=== PATIENT | male | born 1935 | race Caucasian/White ===

== ENCOUNTER 2018-11-28 13:18 | Inpatient (IN) | payer MEDICARE, BC ==
[~2018-11-28] VITALS: Ht 175.3 cm; Wt 66.7 kg
[2018-11-28] MEDS ORDERED: ZESTRIL40 MG PO (16:18)
[2018-11-28] MEDS ORDERED: PROTONIX40 MG PO (16:18)
[2018-11-28] MEDS ORDERED: CERTIRIZINE PO (16:20)
[2018-11-28] MEDS ORDERED: TOPROL XL50 MG PO (16:21)
[2018-11-28] MEDS ORDERED: RIVASTIGMINE3 MG PO (16:22)
[2018-11-28] MEDS ORDERED: CATAPRES0.1 MG PO (16:24)
[2018-11-28] MEDS ORDERED: CARDURA4 MG PO (16:26)
[2018-11-28] MEDS ORDERED: FERROUS SULFAT325 MG PO (16:27)
[2018-11-28] MEDS ORDERED: SEROQUEL25 MG PO (16:27)
[2018-11-28] MEDS ORDERED: ZYRTEC10 MG PO (16:35)
--- NOTE | 2018-11-28 18:54 | NUR ---
PER REPORT FROM PREVIOUS SHIFT: PATIENT WAS ADMITTED TO [facility] @1330 FROM [facility] ASSISTED LIVING DUE TO AGGRESSIVE AND BIZARRE BEHAVIOR. WAS COMBATIVE WITH THE STAFF AND HIS THERE AT [facility]. WAS CARRYING TRASH BIN AROUND AND SCATTERING TRASH ALL OVER THE FLOOR, MOVING LAUNDRY BASKETS TO INAPPROPRIATE PLACES. WAS COMPLAINING THAT HIS HEAD WAS HURTING AND HIS BRAIN WAS ALL SCRAMBLED UP IN THERE. PATIENT IS 83 YRS OLD AND RESIDES AT [facility] WITH HIS . HAS HISTORY OF DEMENTIA AND HAS BEEN MORE CONFUSED. PATIENT IS AMBULATORY. WAS ADMITTED TO ROOM 1128.
[2018-11-28 19:30] VITALS: BP 150/68
--- NOTE | 2018-11-28 22:45 | NUR ---
B) AT CHANGE OF SHIFT PATIENT WAS WANDERING ON UNIT, PICKING UP LINT OFF FLOOR, SHOWING IT TO NURSINF STAFF. TALKING IN ROOM TO PERSONS NOT PRESENT. NO ANGER OBSERVED AND NO AGGRESSION, PLEASANTLY CONFUSED. I) MEDICATE ORDERED, REORIENT AND REDIRECT NEEDED. R) COMPLIANT WITH MEDICATIONS, RESTLESS, PACING, WANDERING, VISUAL AND AUDITORY HALLUCINATIONS. P) MONITOR PER PLAN OF CARE.
[2018-11-28 23:38] VITALS: BP 152/63; BMI 21.8
[2018-11-29 06:03] LABS: BASOPHILS 0.3 % (0-2); EOSINOPHILS 3.8 % (0-7); HEMATOCRIT 34.7 % (42.0-54.0); HEMOGLOBIN 11.8 g/dL (13.5-17.5); IMMATURE GRANULOCYTES 0.3 % (0-5); LYMPHOCYTES 27.2 % (15-50); MCH 31.2 pg (26.0-34.0); MCV 91.8 fL (80.0-100.0); MEAN PLATELET VOLUME 9.4 fL (7.4-10.4); MONOCYTES 11.9 % (2-11); NEUTROPHILS 56.5 % (40-80); PLATELET COUNT 264 10x3/uL (130-400); RBC 3.78 10x6/uL (4.20-6.10); RDW 12.8 % (11.5-14.5); WBC 5.8 10x3/uL (4.8-10.8)
[2018-11-29 06:33] LABS: ALBUMIN 3.3 g/dL (3.4-5.0); ALKALINE PHOSPHATASE 33 U/L (46-116); ALT (SGPT) 21 U/L (10-68); BILIRUBIN - TOTAL 0.53 mg/dL (0.2-1.3); CALC OSMOLALITY 269 mosm/kg (275-300); CALCIUM 8.9 mg/dL (8.5-10.1); CARBON DIOXIDE 28.5 mmol/L (21.0-32.0); CHLORIDE - SERUM 102 mmol/L (98-107); CHOL - HDL RATIO 3.7 ratio (2.3-4.9); CHOLESTEROL, TOTAL 179 mg/dL (0-200); CREATININE - SERUM 0.9 mg/dL (0.6-1.3); GLUCOSE 94 mg/dL (74-106); HDL CHOLESTEROL 48 mg/dL (32-96); LDL CHOLESTEROL 115 mg/dL (0-100); LDL-HDL RATIO 2.4 ratio (1.5-3.5); POTASSIUM - SERUM 4.7 mmol/L (3.5-5.1); PROTEIN - SERUM 6.6 g/dL (6.4-8.2); SODIUM 135 mmol/L (136-145); THYROID STIMULATING HORMONE 2.33 uIU/mL (0.36-3.74); TRIGLYCERIDE 83 mg/dL (30-200); UREA NITROGEN 13 mg/dL (7-18); eGFR NON AFRICAN AMERICAN 86 mL/min (90-120)
[2018-11-29 10:04] VITALS: BP 154/77
[2018-11-29 10:24] VITALS: BMI 21.7
--- NOTE | 2018-11-29 12:30 | NUR ---
The patient is awake, he is watchful, he ambulates independently. He is oriented to self only, he has good technician terminal and repeater memory recall. He has poor insight into his situation. The patient participates in some activities and groups. He is compliant with medications. He is watchful. Continue POC.
[2018-11-29 13:53] LABS: APPEARANCE CLEAR (CLEAR); BILIRUBIN NEGATIVE (NEGATIVE); COLOR STRAW (YELLOW); GLUCOSE NEGATIVE (NEGATIVE); KETONE NEGATIVE (NEGATIVE); NITRITE NEGATIVE (NEGATIVE); PROTEIN NEGATIVE (NEGATIVE); UROBILINOGEN NORMAL (NORMAL)
[2018-11-29 14:29] VITALS: BMI 21.7
[2018-11-29 20:14] VITALS: BP 154/86
--- NOTE | 2018-11-29 22:57 | NUR ---
PATIENT IS AGITATED, WITHDRAWN, SUSPICIOUS ACTING AND SUCSPICIOS OF OTHERS. HE ISNT TRUSTING, HE IS CONCERNED ABOUT HIS AND . HE ASKED, "AM I GOING TO ". EXCESSIVELY PACING. LITTLE DIFFICULT OT REDIRECT. NO ADVERSE REACTIONS NOTED. WILL CONTINUE TO FOLLOW POC
[2018-11-30 08:00] VITALS: BP 146/78
[2018-11-30 08:19] LABS: RAPID PLASMA REAGIN Non Reactive (Non Reactive); VITAMIN D 25 HYDROXY 29.5 ng/mL (30.0-100.0)
[2018-11-30 10:15] LABS: FOLATE (FOLIC ACID) - SERUM 17.9 ng/mL (>3.0)
--- NOTE | 2018-11-30 11:47 | HP ---
PATIENT: KATHY DILLON MEDICAL RECORD: [id number] ACCOUNT: [id number] LOCATION:MERVIN Jones : 36 ADMISSION DATE: 11/28/18 PCP: No PCP HISTORY AND PHYSICAL EXAMINATION IDENTIFYING DATA: The patient is 83 years old and he is admitted to the hospital on a voluntary basis. CHIEF COMPLAINT: Aggression. HISTORY OF PRESENT ILLNESS: The patient lives at the [facility] in [place]. Apparently, he has been combative with his and staff members there. He has no recollection of this and in fact becomes very upset when I mention it, so I did not press the issue. Apparently, he has also been having both visual and auditory hallucinations in addition to the aggression. Apparently, he thought his was , but when I mentioned that he had been agitated with her, again he became very distressed about this. He has an established diagnosis of dementia and has had clear worsening in those symptoms. PAST MEDICAL HISTORY: Significant for hypertension. PAST PSYCHIATRIC HISTORY: Significant for an established diagnosis of dementia. FAMILY HISTORY: Unknown. ALLERGIES: ARICEPT. CURRENT MEDICATIONS: Lisinopril, Protonix, metoprolol, Exelon, Catapres, Cardura, Feosol, Seroquel, Zyrtec. SOCIAL HISTORY: The patient is a mechanical intern. He is and has been to the same woman since 1965. They have no children. He has no history of drug or alcohol abuse. MENTAL STATUS EXAMINATION: The patient is awake, alert, and oriented to person only. His mood is anxious. His affect is constricted. Thought processes are circumstantial. Memory, concentration, and abstraction abilities are severely impaired and he denies any active intent to harm himself or others as well as psychotic symptoms. ASSETS: Supportive family members. LIABILITIES: Limited insight. DIAGNOSTIC IMPRESSION: AXIS I: Senile dementia of the Alzheimer's type with behavioral disturbances. AXIS II: None. AXIS III: Hypertension. AXIS IV: Moderate. AXIS V: Global Assessment Of Functioning is 25. PLAN: At this time, the patient is admitted to the hospital for a comprehensive medical, psychological, and social evaluation. He will be treated with both mood stabilizing and memory-enhancing medications. His long-term prognosis is HISTORY AND PHYSICAL [id number] SANTANA,KATHY guarded. TRANSINT:[id number] Voice Confirmation ID: [id number] DOCUMENT ID: [id number] CHAPARRO COLBERT MD at 1147 CC: [id number] DICTATION DATE: 11/29/181710 RADIOLOGY SUPERVISOR: 11/29/182033 ADM IN [address] [address] [place] [address]
--- NOTE | 2018-11-30 13:00 | NUR ---
The patient is calm and pleasant and calm, he paces and he is bizare in action and movement, but he has not shown any aggression today. Provide prescribed meds. He is compliant with meds. Continue POC.
[2018-11-30 21:54] VITALS: BP 160/59
--- NOTE | 2018-11-30 22:56 | NUR ---
PATIENT PACING, CONFUSED, HARD TO REDIRECT. NO ADVERSE REACTION TO MEDS. ATIVAN/HALDOL GIVEN IM FOR PSYCHOSIS/AGITATION. WILL FOLLOW POC
--- NOTE | 2018-12-01 07:30 | NUR ---
REC'D PT IN HALLWAY. PT IS AWAKE AND ORIENTED TO SELF. PT AMBULATES INDEPENDENTLY. POOR INSIGHT NOTED. PRESCRIBED MEDS PROVIDED. MED COMPLIANT. CALM AND COOPERATIVE WITH ASSESSMENT. FALL PRECAUTIONS IN PLACE. WILL CONTINUE TO MONITOR Q 15 MINUTES FOR SAFETY. WILL CPOC.
[2018-12-01 09:00] VITALS: BP 124/71
--- NOTE | 2018-12-01 12:04 | PN ---
PATIENT:KATHY DILLON MEDICAL RECORD: [id number] LOCATION:MERVIN Fregoso ADMISSION DATE: 11/28/18 PROGRESS NOTE DATE OF SERVICE: 11/30/2018 SUBJECTIVE: The patient's case was discussed with staff. He has no new complaint. OBJECTIVE: The patient denies intent to harm himself or others. He is severely impaired cognitively. He has not been aggressive. Current medicines have been reviewed. TRANSINT:[id number] Voice Confirmation ID: [id number] DOCUMENT ID: [id number] CHAPARRO COLBERT MD at 1204 CC: [id number] DICTATION DATE: 11/30/18 1203 TIE WORKER: 11/30/18 1342 ADM IN [address] [place] [address]
[2018-12-01 22:20] VITALS: BP 156/73
--- NOTE | 2018-12-02 07:30 | NUR ---
REC'D PT IN HALLWAY SOCALIZING WITH PEERS. PT AWAKE AND ALERT WITH CONFUSION N0TED. CALM AND COOPERATIVE WITH ASSESSMENT. NO AGGRESSION NOTED. PRESCRIBED MEDS PROVIDED. MED COMPLIANT. FALL PRECAUTIONS IN PLACE. WILL CONTINUE TO MONITOR Q 15 MINUTES FOR SAFETY. WILL CPOC.
[2018-12-02 08:00] VITALS: BP 155/71
--- NOTE | 2018-12-02 16:25 | NUR ---
ATIVAN 0.5 MG PO GIVEN FOR AGITATION AND DIFFICULT WITH REDIRECTION.
--- NOTE | 2018-12-02 17:39 | PN ---
PATIENT:KATHY DILLON MEDICAL RECORD: [id number] LOCATION:[facility] Fregoso ADMISSION DATE: 11/28/18 PROGRESS NOTE DATE OF SERVICE: 12/01/2018 SUBJECTIVE: The patient's case was discussed with staff. He has no new complaint. OBJECTIVE: The patient denies intent to harm himself or others. He does tolerate his medicines well. He has been somewhat agitated and did require p.r.n. Haldol and Ativan last night. ASSESSMENT: No change in diagnoses. PLAN: The patient's Seroquel will be discontinued. I am going to start him on Geodon at a dose of 20 mg daily. TRANSINT:[id number] Voice Confirmation ID: [id number] DOCUMENT ID: [id number] CHAPARRO COLBERT MD at 1739 CC: [id number] DICTATION DATE: 12/01/18 1228 CONTROL SYSTEMS SPECIALIST: 12/01/18 1734 ADM IN [id number] [place] [address]
--- NOTE | 2018-12-03 01:26 | NUR ---
RECEIVED IN HALLWAY OUTSIDE OF [facility] STATION. WANDERING HALLS. VERY CONFUSED. ATTMEPTING TO GO IN OTHER PATIENTS ROOMS. CALM AND COOPERATIVE WITH CARE AND ASSESSMENT. NO SIGNS OF AGGRESSION. REDIRECT AND REORIENT NEEDED. RESTING IN BED WITH EYES CLOSED AT THIS TIME. CONTINUE PLAN OF CARE.
--- NOTE | 2018-12-03 07:30 | NUR ---
REC'D PT IN HALLWAY SITTING IN CHAIR SOCIALIZING WITH PEERS. NO AGGRESSION NOTED. CALM AND COOPERATIVE WITH ASSESSMENT. REDIRECT AND REORIENT NEEDED. PRESCRIBED MEDS PROVIDED. MED COMPLIANT. FALL PRECAUTIONS IN PLACE. WILL CONTINUE TO MONITOR Q 15 MINUTES FOR SAFETY. WILL CPOC.
[2018-12-03 08:00] VITALS: BP 163/123
--- NOTE | 2018-12-03 10:30 | NUR ---
REPEAT B/P 157/82 WILL CPOC.
--- NOTE | 2018-12-03 12:00 | NUR ---
PT VOMITING CLEAR FLIUDS. GLADYS TELEMETRY RN PRESENT. NEW ORDER NOTED. WILL CONTINUE TO MONITOR.
[2018-12-03 12:03] VITALS: BP 157/82
--- NOTE | 2018-12-03 15:11 | PN ---
PATIENT:KATHY DILLON MEDICAL RECORD: [id number] LOCATION:MERVIN Fregoso ADMISSION DATE: 11/28/18 PROGRESS NOTE DATE OF SERVICE: 12/02/2018 SUBJECTIVE: The patient's case was discussed with staff. He has no new complaint. OBJECTIVE: The patient is quite confused, but he has not been aggressive. He is difficult to redirect and is having a great deal of difficulty interpreting what is going on in his environment. Some of this is causing anxiety, which is being manifested as the agitation. ASSESSMENT: No change in diagnoses. PLAN: I am going to start the patient on a low dose of Klonopin to assist with this agitation. His long-term prognosis is guarded. TRANSINT:[id number] Voice Confirmation ID: [id number] DOCUMENT ID: [id number] CHAPARRO COLBERT MD at 1511 CC: [id number] DICTATION DATE: 12/02/18 1821 COOK NIGHT: 12/02/18 2338 ADM IN [address] [id number] [place] [address]
[2018-12-03 19:31] VITALS: BP 129/89
--- NOTE | 2018-12-03 23:21 | NUR ---
RECEIVED IN HALLWAY OUTSIDE OF NURSES STATION. WANDERING HALLS. CONFUSED. CALM AND COOPERATIVE WITH CARE AND ASSESSMENT. NO SIGNS OF AGGRESSION. REDRIECT AND REORIENT NEEDED. RESTING IN BED WITH EYES CLOSED AT THIS TIME. CONTINUE PLAN OF CARE.
--- NOTE | 2018-12-04 10:00 | NUR ---
RECEIVED PATIENT IN DINING ROOM FOR B'FAST, ALERT, CALM, CONFUSED, COOPERATIVE. DENIES NAUSEA. MEDS ADMIN PER ORDERS, MED COMPLIANT, NO S/S ADVERSE REACTION NOTED. COOPERATIVE WITH GROUP AND STAFF REQUESTS. CONT POC INCLUDING MEDS AND GROUP THERAPY DIRECTED.
[2018-12-04 11:03] VITALS: Ht 175.3 cm; Wt 66.7 kg
[2018-12-04 11:35] VITALS: BP 123/105
--- NOTE | 2018-12-04 16:07 | PN ---
PATIENT:KATHY DILLON MEDICAL RECORD: [id number] LOCATION:MERVIN Fregoso ADMISSION DATE: 11/28/18 PROGRESS NOTE DATE OF SERVICE: 12/03/2018 SUBJECTIVE: The patient's case was discussed with staff. He has no new complaint. OBJECTIVE: The patient denies an intent to harm himself or others. He tolerates his medicines well. ASSESSMENT: No change in diagnoses. PLAN: The patient has had some nausea today, not sure what is causing this. He may be developing a gastrointestinal condition. I am not going to make a medicine change today in case it is related to something he is taking. The iron is certainly a possibility, but he has been on iron before he came here, so I am not sure what the issue is. I will observe him for another day and may or may not make additional medication changes tomorrow. TRANSINT:[id number] Voice Confirmation ID: [id number] DOCUMENT ID: [id number] CHAPARRO COLBERT MD at 1607 CC: [id number] DICTATION DATE: 12/03/18 1624 CONTINUITY TESTER: 12/03/182027 ADM IN [facility] [address] [place] [address]
[2018-12-04 20:48] VITALS: BP 132/60
--- NOTE | 2018-12-04 23:38 | NUR ---
RECEIVED IN HALLAY OUTSIDE OF NURSES STATION. WANDERING HALLS. CONFUSED. CALM AND COOPERATIVE WITH CARE AND ASSESSMENT. NO SIGNS OF AGGRESSION. REDIRECT AND REORIENT NEEDED. RESTING IN BED WITH EYES CLOSED AT THIS TIME. CONTINUE PLAN OF CARE.
--- NOTE | 2018-12-05 14:00 | NUR ---
B) The patient is lethargic this am, but he awakened this afternoon. He is pleasant, but very confused. He stares off into space and he is nonsensical in his speaking. He has been taking his clothes off many times today and he has had to be redirected and assisted to put them back on. He can ambulate, but he is slow moving today. I) Provide prescribed meds. R) The patient is compliant with meds. P) Continue POC.
--- NOTE | 2018-12-05 14:42 | PN ---
PATIENT:KATHY DILLON MEDICAL RECORD: [id number] LOCATION:MERVIN Fregoso ADMISSION DATE: 11/28/18 PROGRESS NOTE DATE OF SERVICE: 12/04/2018 SUBJECTIVE: The patient's case was discussed with staff. He has no new complaint. OBJECTIVE: The patient is having some nausea and vomiting. It appears to be related to a viral illness that is affected several patients and a couple of staff members as well. He will be treated supportively for the time being and then further efforts will be made to address his behavior problems. Right now, it is also known that he is significantly constipated and has not had a bowel movement for a little while and efforts are going to be made to fix that. TRANSINT:[id number] Voice Confirmation ID: [id number] DOCUMENT ID: [id number] CHAPARRO COLBERT MD at 1442 CC: [id number] DICTATION DATE: 12/04/18 1639 STAYING MACHINE OPERATOR: 12/04/18 2240 ADM IN [address] [id number] [place] [address]
[2018-12-05 15:48] LABS: BASOPHILS 0.3 % (0-2); EOSINOPHILS 0.3 % (0-7); HEMATOCRIT 36.9 % (42.0-54.0); HEMOGLOBIN 12.9 g/dL (13.5-17.5); IMMATURE GRANULOCYTES 0.2 % (0-5); LYMPHOCYTES 19.2 % (15-50); MCV 91.6 fL (80.0-100.0); MEAN PLATELET VOLUME 10.4 fL (7.4-10.4); MONOCYTES 11.1 % (2-11); NEUTROPHILS 68.9 % (40-80); PLATELET COUNT 287 10x3/uL (130-400); RBC 4.03 10x6/uL (4.20-6.10); RDW 12.6 % (11.5-14.5); WBC 6.7 10x3/uL (4.8-10.8)
[2018-12-05 16:08] LABS: ALBUMIN 3.6 g/dL (3.4-5.0); ALKALINE PHOSPHATASE 41 U/L (46-116); ALT (SGPT) 29 U/L (10-68); BILIRUBIN - TOTAL 0.72 mg/dL (0.2-1.3); CALC OSMOLALITY 279 mosm/kg (275-300); CALCIUM 9.7 mg/dL (8.5-10.1); CARBON DIOXIDE 27.3 mmol/L (21.0-32.0); CHLORIDE - SERUM 99 mmol/L (98-107); CREATININE - SERUM 0.8 mg/dL (0.6-1.3); GLUCOSE 93 mg/dL (74-106); POTASSIUM - SERUM 5.1 mmol/L (3.5-5.1); PROTEIN - SERUM 7.7 g/dL (6.4-8.2); SODIUM 136 mmol/L (136-145); UREA NITROGEN 36 mg/dL (7-18); eGFR NON AFRICAN AMERICAN > 90 mL/min (90-120)
[2018-12-05 19:56] VITALS: BP 157/85
--- NOTE | 2018-12-05 21:35 | NUR ---
B) Carrying brown paper bag around with urinal and tennis shoes in, unable to stay what he is doing this for. States he has had a very rough, rough day. States "everything tears me up." Was unable to elaborate or explain what he means by this, has difficulty expressing himself. Wanders about, redirect back to room. I) Administer medications as ordered, redirect and reorient PRN. R) Compliant with medications, restless, anxious, difficult getting to settle to sleep. P) Monitor per plan of care.
[2018-12-06 08:00] VITALS: BP 119/79
--- NOTE | 2018-12-06 15:20 | PN ---
PATIENT:KATHY DILLON MEDICAL RECORD: [id number] LOCATION:MERVIN Fregoso ADMISSION DATE: 11/28/18 PROGRESS NOTE DATE OF SERVICE: 12/05/2018 SUBJECTIVE: The patient's case was discussed with staff. He has no new complaint. OBJECTIVE: The patient is in good behavioral control. He has poor insight about his condition. He tolerates his medicines well. ASSESSMENT: No change in diagnoses. PLAN: Current medicines have been reviewed and will be maintained. Long-term prognosis is guarded. The patient is significantly calmer, but continues to not eat very well. Megace was started yesterday. TRANSINT:[id number] Voice Confirmation ID: [id number] DOCUMENT ID: [id number] CHAPARRO COLBERT MD at 1520 CC: [id number] DICTATION DATE: 12/05/18 1526 CLINICAL SPECIALIST VASCULAR: 12/05/18 2105 ADM IN [address] [place] [address]
--- NOTE | 2018-12-06 16:08 | NUR ---
CONFUSED AND DISORIENTED.COMPLIANT WITH STAFF AND MEDS.SLEEPS MOST OF THE DAY.NO AGGRESSION OBSERVED.WILL CONTINUE WITH PLAN OF CARE,MONITOR FOR CHANGES AND SAFETY.
--- NOTE | 2018-12-06 18:23 | NUR ---
APPETITE IS POOR.SPOON FED 5%.
--- NOTE | 2018-12-06 18:53 | NUR ---
OBSERVED SEVERAL TIMES TODAY EXIT SEEKING.EASILY REDIRECTS.
[2018-12-06 20:54] VITALS: BP 125/74
--- NOTE | 2018-12-07 01:29 | NUR ---
B) Patient is alert and oriented to self, tired today and ready to go to bed, follow instructions, I) Administered schedulled medications as ordered, monitored for safety, assisted with needs, R) Mediation compliant, sleeping quietly in bed now, P) Continue plan of care.
--- NOTE | 2018-12-07 07:30 | NUR ---
REC'D PT SITTING IN CHAIR IN HALLWAY BY NURSES STATION. ALERT AND ORIENTED WITH CONFUSION NOTED. CALM AND COOPERATIVE WITH ASSESSMENT. PRESCRIBED MEDS PROVIDED. MED COMPLIANT. NO AGGRESSION NOTED. FALL PRECAUTIONS IN PLACE. WILL CONTINUE TO MONITOR Q 15 MINUTES FOR SAFETY. WILL CPOC.
[2018-12-07 09:17] VITALS: BP 147/62
--- NOTE | 2018-12-07 10:04 | PN ---
PATIENT:KATHY DILLON MEDICAL RECORD: [id number] LOCATION:MERVIN Fregoso ADMISSION DATE: 11/28/18 PROGRESS NOTE DATE OF SERVICE: 12/06/2018 SUBJECTIVE: The patient's case was discussed with staff. He has no new complaint. OBJECTIVE: The patient is in good behavioral control with limited insight about his condition. He tolerates his medicines well. He is not eating well. He has been started on Megace, but he has not had enough exposure to it to be effective. He ate nothing yesterday. I will check baseline labs tomorrow if today's intake report is comparable to yesterday's. TRANSINT:[id number] Voice Confirmation ID: [id number] DOCUMENT ID: [id number] CHAPARRO COLBERT MD at 1004 CC: [id number] DICTATION DATE: 12/06/18 1540 LAST PULLER: 12/06/18 1638 ADM IN [facility] [address] [place] [address]
[2018-12-07 12:05] LABS: BASOPHILS 0.3 % (0-2); EOSINOPHILS 0.6 % (0-7); HEMOGLOBIN 12.7 g/dL (13.5-17.5); IMMATURE GRANULOCYTES 0.3 % (0-5); LYMPHOCYTES 22.1 % (15-50); MCH 31.4 pg (26.0-34.0); MCHC 35.3 g/dL (31.0-37.0); MEAN PLATELET VOLUME 9.6 fL (7.4-10.4); MONOCYTES 17.9 % (2-11); NEUTROPHILS 58.8 % (40-80); PLATELET COUNT 271 10x3/uL (130-400); RBC 4.04 10x6/uL (4.20-6.10); RDW 12.3 % (11.5-14.5); WBC 6.9 10x3/uL (4.8-10.8)
[2018-12-07 12:07] LABS: MCV 89.1 fL (80.0-100.0)
[2018-12-07 12:18] LABS: ALBUMIN 3.6 g/dL (3.4-5.0); BILIRUBIN - TOTAL 0.52 mg/dL (0.2-1.3); CALCIUM 10.1 mg/dL (8.5-10.1); CARBON DIOXIDE 27.3 mmol/L (21.0-32.0); PROTEIN - SERUM 7.3 g/dL (6.4-8.2)
[2018-12-07 12:19] LABS: ANION GAP 11.5 mmol/L (8-16); CREATININE - SERUM 1.2 mg/dL (0.6-1.3); POTASSIUM - SERUM 3.8 mmol/L (3.5-5.1)
--- NOTE | 2018-12-07 13:10 | NUR ---
Attempted to start an IV with a 20 guage IV cath in his left inner forearm. The vein blew. Did a second attempt with a 22 guage IV cath with success on the top left forearm, IV infusing well.
--- NOTE | 2018-12-07 15:20 | NUR ---
The patient pulled his IV out.
--- NOTE | 2018-12-07 15:25 | NUR ---
20 guage catheter inserted with flashback, flushed 10 ml NS. IV started and infusing well, wrapped with Coban. He has to be reminded not to touch the IV site, but he keeps touching it.
--- NOTE | 2018-12-07 17:40 | NUR ---
The patient pulled his Koban down on his arm and the IV began to beep and showed occluded. Did look at the patient's arm and the IV is infiltrated up his arm, he denies any pain. Did d/c the IV. He did get 200 ml in and he is starting to talk and look more alert.
--- NOTE | 2018-12-07 17:41 | NUR ---
The patient pulled his Koban down on his arm and the IV pump said occluded.
[2018-12-07 20:00] VITALS: BP 133/76
[2018-12-07 21:32] VITALS: BP 133/76
--- NOTE | 2018-12-08 02:04 | NUR ---
B) patient is alert and oriented to self, very confused and does not follow instructions, restless and trying to stand unassisted, I) Administered scheduled medications as ordered,, monitored for safety, redirected as needed R) Mediation compliant, resting quietly in his bed, P) Continue plan of care.
[2018-12-08 05:53] LABS: BASOPHILS 0.3 % (0-2); EOSINOPHILS 0.8 % (0-7); HEMATOCRIT 34.9 % (42.0-54.0); HEMOGLOBIN 12.3 g/dL (13.5-17.5); IMMATURE GRANULOCYTES 0.1 % (0-5); MCH 31.6 pg (26.0-34.0); MCHC 35.2 g/dL (31.0-37.0); MCV 89.7 fL (80.0-100.0); MEAN PLATELET VOLUME 9.7 fL (7.4-10.4); MONOCYTES 15.7 % (2-11); NEUTROPHILS 62.1 % (40-80); PLATELET COUNT 280 10x3/uL (130-400); RBC 3.89 10x6/uL (4.20-6.10); RDW 12.4 % (11.5-14.5); WBC 7.2 10x3/uL (4.8-10.8)
[2018-12-08 06:23] LABS: ALBUMIN 3.5 g/dL (3.4-5.0); ANION GAP 13.8 mmol/L (8-16); BILIRUBIN - TOTAL 0.55 mg/dL (0.2-1.3); CALCIUM 9.4 mg/dL (8.5-10.1); CARBON DIOXIDE 24.8 mmol/L (21.0-32.0); CREATININE - SERUM 1.1 mg/dL (0.6-1.3); POTASSIUM - SERUM 3.6 mmol/L (3.5-5.1); PROTEIN - SERUM 7.1 g/dL (6.4-8.2)
--- NOTE | 2018-12-08 06:38 | NUR ---
IV RESITED TO LEFT UPPER ARM, 22 GA ONE STICK.
[2018-12-08 08:59] VITALS: BP 123/87
--- NOTE | 2018-12-08 13:57 | PN ---
PATIENT:KATHY DILLON MEDICAL RECORD: [id number] LOCATION:MERVIN Fregoso ADMISSION DATE: 11/28/18 PROGRESS NOTE DATE OF SERVICE: 12/07/2018 SUBJECTIVE: The patient's case was discussed with staff. He has no new complaint. OBJECTIVE: The patient is very limited in his insight. He is minimally communicative. He continues to not eat very well. ASSESSMENT: No change in diagnoses. PLAN: I am going to order a set of baseline labs since the patient is not eating or drinking very well. His dementia is late in its progression. Efforts are being made to feed him and he is taking an appetite stimulant. TRANSINT:[id number] Voice Confirmation ID: [id number] DOCUMENT ID: [id number] CHAPARRO COLBERT MD at 1357 CC: [id number] DICTATION DATE: 12/07/18 1107 IMPROVEMENT INTERN: 12/07/18 1226 ADM IN [address] [place] [address]
[2018-12-08 18:17] VITALS: BP 135/72
--- NOTE | 2018-12-08 18:34 | NUR ---
CONFUSED AND DISORIENTED.COMPLIANT WITH STAFF AND MEDS.NO AGGRESSION OBSERVED.WILL CONTINUE WITH PLAN OF CARE,MONITOR FOR CHANGES AND SAFETY.
--- NOTE | 2018-12-09 00:08 | NUR ---
PATIENT IS VERY CONFUSED, WANDERS AROUND, REPEATS THE SAME QUESTION. COMPLIANT WITH MEDS, NO ADVERSE REACTION NOTED. WILL FOLLOW POC
[2018-12-09 06:58] LABS: CALC OSMOLALITY 286 mosm/kg (275-300); CALCIUM 9.7 mg/dL (8.5-10.1); CARBON DIOXIDE 25.3 mmol/L (21.0-32.0); CHLORIDE - SERUM 104 mmol/L (98-107); CREATININE - SERUM 0.9 mg/dL (0.6-1.3); GLUCOSE 93 mg/dL (74-106); POTASSIUM - SERUM 3.6 mmol/L (3.5-5.1); SODIUM 138 mmol/L (136-145); UREA NITROGEN 44 mg/dL (7-18); eGFR NON AFRICAN AMERICAN 86 mL/min (90-120)
--- NOTE | 2018-12-09 07:30 | NUR ---
REC'D PT IN HALLWAY SITTING IN CHAIR WITH PEERS. AWAKE AND ALERT TO SELF WITH CONFUSION NOTED. CALM AND COOPERATIVE WITH ASSESSMENT. PRESCRIBED MEDS PROVIDED. MED COMPLIANT. REDIRECT AND REORIENT NEEDED. NO AGGRESSION NOTED. FALL PRECAUTIONS IN PLACE. WILL CONTINUE TO MONITOR Q 15 MINUTES FOR SAFETY. WILL CPOC.
[2018-12-09 08:04] VITALS: BP 138/61
--- NOTE | 2018-12-09 10:49 | NUR ---
Regular diet with 16% average po intake Pt is not eating or drinking much BUN 44 Pt is on Megace Will add Ensure Spoke with nursing and recommended medications be given with Ensure RD following
--- NOTE | 2018-12-09 16:20 | PN ---
PATIENT:KATHY DILLON MEDICAL RECORD: [id number] LOCATION:MERVIN Fregoso ADMISSION DATE: 11/28/18 PROGRESS NOTE DATE OF SERVICE: 12/08/2018 SUBJECTIVE: The patient's case was discussed with staff. He has no new complaint. OBJECTIVE: The patient denies intent to harm himself or others. He generally tolerates his medicines well. ASSESSMENT: No change in diagnoses. PLAN: Current medicines and therapies have been reviewed and will be maintained. His long-term prognosis is guarded. TRANSINT:[id number] Voice Confirmation ID: [id number] DOCUMENT ID: [id number] CHAPARRO COLBERT MD at 1620 CC: [id number] DICTATION DATE: 12/08/18 1414 OR RN: 12/08/18 1620 ADM IN [address] [address] [place] [address]
[2018-12-09 20:40] VITALS: BP 155/97
--- NOTE | 2018-12-10 00:30 | NUR ---
RECEIVED IN PATIENT ROOM. SITTING ON SIDE OF BED. CALM AND COOPERATIVE WITH CARE AND ASSESSMENT. NO SIGNS OF AGGRESSION. REDIRECT AND REORIENT NEEDED. RESTING IN BED WITH EYES CLOSED AT THIS TIME. CONTINUE PLAN OF CARE.
--- NOTE | 2018-12-10 07:30 | NUR ---
REC'D IN HALLWAY WITH PEERS. AWAKE AND ALERT TO SELF. CALM AND COOPERATIVE WITH ASSESSMENT. REDIRECT AND REORIENT NEEDED. PRESCRIBED MEDS PROVIDED. MED COMPLIANT. NO AGGRESSION NOTED. FALL PRECAUTIONS IN PLACE. WILL CONTINUE TO MONITOR Q 15 MINUTES FOR SAFETY. WILL CPOC.
[2018-12-10 08:00] VITALS: BP 116/71
--- NOTE | 2018-12-10 15:55 | PN ---
PATIENT:KATHY DILLON MEDICAL RECORD: [id number] LOCATION:[facility]ERVIN Fregoso ADMISSION DATE: 11/28/18 PROGRESS NOTE DATE OF SERVICE: 12/09/2018 SUBJECTIVE: The patient's case was discussed with staff. He has no new complaint. OBJECTIVE: The patient is in good behavioral control with limited insight about his condition. He generally tolerates his medicines well. He is sleeping and eating reasonably well and has not been significantly agitated today. ASSESSMENT: No change in diagnoses. PLAN: Supportive and educational interventions were made. Long-term prognosis is guarded. TRANSINT:[id number] Voice Confirmation ID: [id number] DOCUMENT ID: [id number] CHAPARRO COLBERT MD at 1555 CC: [id number] DICTATION DATE: 12/09/18 1659 DYE HOUSE HELPER: 12/09/18 1755 ADM IN [address] [id number] [place] [id number]
[2018-12-10 19:34] VITALS: BP 153/77
--- NOTE | 2018-12-11 04:56 | NUR ---
RECEIVED IN DAYROOM. RESTING IN RECLINER WITH PEERS AT HIS SIDE. CALM AND COOOPERATIVE WITH CARE AND ASSESSMENT. NO SIGNS OF AGGRESSION. REDIRECT AND REORIENT NEEDED. RESTING IN BED WITH EYES CLOSED AT THIS TIME. CONTINUE PLAN OF CARE.
--- NOTE | 2018-12-11 07:30 | NUR ---
REC'D PT IN HALLWAY. ALERT TO SELF ONLY. CALM AND COOPERATIVE WITH ASSESSMENT. REDIRECT AND REORIENT NEEDED. NO AGGRESSION NOTED. PRESCRIBED MEDS PROVIDED. MED COMPLIANT. FALL PRECAUTIONS IN PLACE. WILL CONTINUE TO MONITOR Q 15 MINUTES FOR SAFETY. WILL CPOC.
[2018-12-11 08:00] VITALS: BP 127/81
--- NOTE | 2018-12-11 12:06 | PN ---
PATIENT:KATHY DILLON MEDICAL RECORD: [id number] LOCATION:[facility]ERVIN Fregoso ADMISSION DATE: 11/28/18 PROGRESS NOTE DATE OF SERVICE: 12/10/2018 SUBJECTIVE: The patient's case was discussed with staff. He has no new complaint. OBJECTIVE: The patient is in good behavioral control, but not eating adequately. He has been encouraged to eat better with limited results. ASSESSMENT: No change in diagnosis. PLAN: The patient is taking Megace. His long-term prognosis is guarded. TRANSINT:[id number] Voice Confirmation ID: [id number] DOCUMENT ID: [id number] CHAPARRO COLBERT MD at 1206 CC: [id number] DICTATION DATE: 12/10/18 1631 MAINTENANCE APPRENTICE: 12/10/18 2105 ADM IN [facility] [address] [place] [address]
[2018-12-11 19:24] VITALS: BP 119/63
--- NOTE | 2018-12-11 23:56 | NUR ---
B) Patient is alert and oriented to self, wanders at times with unsteady gait, I) Administered scheduled medications as ordered, monitored for safety, redirected as needed, R) Mediation compliant, calm and cooperative, P) Continue plan of care.
[2018-12-12 09:49] VITALS: BP 131/65
--- NOTE | 2018-12-12 15:48 | PN ---
PATIENT:KATHY DILLON MEDICAL RECORD: [id number] LOCATION:MERVIN Fregoso ADMISSION DATE: 11/28/18 PROGRESS NOTE DATE OF SERVICE: 12/11/2018 SUBJECTIVE: The patient's case was discussed with staff. He has no new complaint. OBJECTIVE: The patient is in good behavioral control and he has limited insight about his condition. He does tolerate his medicines reasonably well. He is quite anxious and is severely impaired cognitively. ASSESSMENT: No change in diagnoses. PLAN: Supportive and educational interventions were made. I am going to increase the patient's Klonopin slightly because of the anxiety he is experiencing. TRANSINT:[id number] Voice Confirmation ID: [id number] DOCUMENT ID: [id number] CHAPARRO COLBERT MD at 1548 CC: [id number] DICTATION DATE: 12/11/18 1855 BAG VALVER: 12/11/18 2105 ADM IN [facility] [address] [place] [address]
--- NOTE | 2018-12-12 18:33 | NUR ---
CONFUSED AND DISORIENTED.COMPLIANT WITH STAFF AND MEDS.NO AGGRESSION OBSERVED.PLESANT.ATTEMPTS TO HELP OTHERS.OBSERVED TRYING TO OPEN OUTSIDE DOORS.WILL CONTINUE WITH PLAN OF CARE,MONITOR FOR CHANGES AND SAFETY.
[2018-12-12 20:00] VITALS: BP 102/43
--- NOTE | 2018-12-13 04:57 | NUR ---
B) Patient is alert and oriented to self, wanders at times I) Administered scheduled medications as ordered, redirected as needed, R) Mediation compliant, tossed and turned in his sleep P) Continue plan of care.
[2018-12-13 05:42] VITALS: BP 111/38
--- NOTE | 2018-12-13 10:05 | NUR ---
RECEIVED PATIENT IN DINING ROOM FOR B'FAST, ALERT, CALM, COOPERATIVE, QUITE CONFUSED. NO AGGRESSION NOTED. MEDS ADMIN PER ORDERS WITH COMPLETE MED COMPLIANCE NOTED. NO S/S ADVERSE REACTION. COOPERATIVE WITH GROUP ACTIVITY AND STAFF REQUESTS. CONT POC INCLUDING MEDS AND GROUP THERAPY DIRECTED.
--- NOTE | 2018-12-13 10:37 | NUR ---
ANTI-HYPERTENSIVE MEDS HELD AT 0900 MED PASS DUE TO DECREASED BLOOD PRESSURE. BLOOD PRESSURE CHECKED AT THIS TIME AND FOUND TO BE 129/63.
[2018-12-13 10:39] VITALS: BP 129/63
--- NOTE | 2018-12-13 15:16 | PN ---
PATIENT:KATHY DILLON MEDICAL RECORD: [id number] LOCATION:[facility] ADMISSION DATE: 11/28/18 PROGRESS NOTE DATE OF SERVICE: 12/12/2018 SUBJECTIVE: The patient's case was discussed with staff. He has no new complaint. OBJECTIVE: The patient is confused, but has limited insight about his condition. He is participating in treatment, but clearly has very limited insight. ASSESSMENT: No change in diagnoses. PLAN: Current medicines and therapies have been reviewed and will be maintained. Long-term prognosis is guarded. I anticipate he can be transitioned back to the shelter soon. TRANSINT:[id number] Voice Confirmation ID: [id number] DOCUMENT ID: [id number] CHAPARRO COLBERT MD at 1516 CC: [id number] DICTATION DATE: 12/12/18 1631 STACKER STRAIGHTENER: 12/12/18 2240 ADM IN [facility] [address] [place] [address]
[2018-12-13 19:59] VITALS: BP 98/79
--- NOTE | 2018-12-13 21:33 | NUR ---
B) Patient is alert and oriented to self, very confused , wanders the halls and comes to nursing station, rambles at times, I) Administered scheduled medications as ordered, monitored for safety, redirected as needed, R) mediation compliant, difficult to communicate with due to him not comprehending instructions, P) Continue plan of care.
[2018-12-14 08:00] VITALS: BP 136/80
--- NOTE | 2018-12-14 11:22 | NUR ---
B) The patient is calm, he is confused, and has poor insight into his situation. He ambulates independently. He has not shown any aggression this morning. I) Provide prescribed meds and encourage eating and drinking. R) He is compliant with meds and unit milieu. P) Continue POC.
--- NOTE | 2018-12-14 12:11 | PN ---
PATIENT:KATHY DILLON MEDICAL RECORD: [id number] LOCATION:[facility] ADMISSION DATE: 11/28/18 PROGRESS NOTE DATE OF SERVICE: 12/13/2018 SUBJECTIVE: The patient's case was discussed with staff. He has no new complaint. OBJECTIVE: The patient is in good behavioral control. He has limited insight about his condition. He is quite confused, but has not been aggressive. He continues to be exit-seeking and clearly he is going to need a locked unit. ASSESSMENT: No change in diagnoses. PLAN: Current medicines have been reviewed and will be maintained. Long-term prognosis is guarded. TRANSINT:[id number] Voice Confirmation ID: [id number] DOCUMENT ID: [id number] CHAPARRO COLBERT MD at 1211 CC: [id number] DICTATION DATE: 12/13/18 1607 ELECTRICAL & INSTRUMENTATION SUPERVISOR: 12/13/182013 ADM IN [facility] [address] [place] [address]
--- NOTE | 2018-12-14 20:16 | NUR ---
PATIENT IS VERY CONFUSED, WANDERS AROUND IN THE DAYROOM, HAS TO BE REDIRECTED MULTIPLE TIMES, HE IS KIND AND APPRECIATIVE OF HELP THAT HE RECIEVES. COMPLIANT WITH MEDS. NO ADVERSE REACTION NOTED. WILL FOLLOW POC
[2018-12-14 21:39] VITALS: BP 160/62
--- NOTE | 2018-12-15 07:30 | NUR ---
REC'D PT IN HALLWAY WITH PEERS. PT IS VERY CONFUSED. ALERT TO SELF ONLY. PT CALM AND COOPERATIVE WITH ASSESSMENT. PRESCRIBED MEDS PROVIDED. MED COMPLIANT. REDIRECT AND REORIENT NEEDED. FALL PRECAUTIONS IN PLACE. WILL CONTINUE TO MONITOR Q 15 MINUTES FOR SAFETY. WILL CPOC.
[2018-12-15 07:42] VITALS: BP 191/98
--- NOTE | 2018-12-15 11:54 | PN ---
PATIENT:KATHY DILLON MEDICAL RECORD: [id number] LOCATION:[facility] ADMISSION DATE: 11/28/18 PROGRESS NOTE DATE OF SERVICE: 12/14/2018 SUBJECTIVE: The patient's case was discussed with staff. He has no new complaint. OBJECTIVE: The patient is calmer, but does not appear overly sedated. He is still exit seeking and clearly is going to require a long-term care setting where the doors are secure. ASSESSMENT: No change in diagnoses. PLAN: Current medicines have been reviewed and will be maintained. Supportive and educational interventions were made. TRANSINT:[id number] Voice Confirmation ID: [id number] DOCUMENT ID: [id number] CHAPARRO COLBERT MD at 1154 CC: [id number] DICTATION DATE: 12/14/18 1229 SUPERVISOR INSTRUMENT REPAIR: 12/14/18 1333 ADM IN [place] [id number] [place] [id number]
[2018-12-15 21:25] VITALS: BP 123/76
--- NOTE | 2018-12-16 04:40 | NUR ---
PATIENT IS VERY CONFUSED, AT A LOST FOR WORDS AT ALL TIMES, HAS TO BE REDIRECTED FREQUENTLY, HE IS COOPERATIVE AND PLEASANT, COMPLIANT WITH MEDS, NO ADVERSE REACTION NOTED. WILL FOLLOW POC
--- NOTE | 2018-12-16 07:30 | NUR ---
REC'D PT IN HALLWAY. AWAKE AND ALERT WITH CONFUSION NOTED. CALM AND COOPERATIVE WITH ASSESSMENT. REDIRECT AND REORIENT NEEDED. PRESCRIBED MEDS PROVIDED. MED COMPLIANT. NO AGGRESSION NOTED. WILL CONTINUE TO MONITOR Q 15 MINUTES FOR SAFETY.
[2018-12-16 08:11] VITALS: BP 121/99
--- NOTE | 2018-12-16 10:32 | NUR ---
Regular diet with 35% average po intake Ensure ordered with all trays- pt drinks Ensure sometimes and drank entire drink today Started on Megace Staff is feeding pt Will trial mechanical soft diet to help increase po intake RD following
[2018-12-16 11:39] LABS: BASOPHILS 0.3 % (0-2); EOSINOPHILS 0.5 % (0-7); HEMATOCRIT 33.6 % (42.0-54.0); HEMOGLOBIN 11.7 g/dL (13.5-17.5); LYMPHOCYTES 24.6 % (15-50); MCH 31.3 pg (26.0-34.0); MCHC 34.8 g/dL (31.0-37.0); MCV 89.8 fL (80.0-100.0); MEAN PLATELET VOLUME 9.6 fL (7.4-10.4); MONOCYTES 13.7 % (2-11); NEUTROPHILS 60.9 % (40-80); PLATELET COUNT 298 10x3/uL (130-400); RBC 3.74 10x6/uL (4.20-6.10); RDW 12.5 % (11.5-14.5); WBC 6.5 10x3/uL (4.8-10.8)
[2018-12-16 11:44] LABS: ALBUMIN 3.4 g/dL (3.4-5.0); ANION GAP 16.4 mmol/L (8-16); BILIRUBIN - TOTAL 0.62 mg/dL (0.2-1.3); CALCIUM 9.4 mg/dL (8.5-10.1); CARBON DIOXIDE 22.9 mmol/L (21.0-32.0); CREATININE - SERUM 1.4 mg/dL (0.6-1.3); POTASSIUM - SERUM 4.3 mmol/L (3.5-5.1); PROTEIN - SERUM 6.8 g/dL (6.4-8.2)
--- NOTE | 2018-12-16 14:59 | PN ---
PATIENT:KATHY DILLON MEDICAL RECORD: [id number] LOCATION:[facility] ADMISSION DATE: 11/28/18 PROGRESS NOTE DATE OF SERVICE: 12/15/2018 SUBJECTIVE: The patient's case was discussed with staff. He has no new complaint. OBJECTIVE: The patient denies intent to harm himself or others. He is tolerating his medicines well. ASSESSMENT: No change in diagnoses. PLAN: Brief supportive and educational interventions were made. The patient still wandering about a great deal. I think I am at or very close to the maximum hospital benefit and the best balance between his symptoms and medications. TRANSINT:[id number] Voice Confirmation ID: [id number] DOCUMENT ID: [id number] CHAPARRO COLBERT MD at 1459 CC: [id number] DICTATION DATE: 12/15/18 1159 SLAB LIFTING ENGINEER: 12/15/18 1238 ADM IN [place] [id number] [place] [address]
[2018-12-16 21:57] VITALS: BP 120/80
--- NOTE | 2018-12-17 04:45 | NUR ---
RECEIVED IN PATIENT ROOM. GETTING READY FOR BED. CALM AND COOPERATIVE WITH CARE AND ASSESSMENT. NO SIGNS OF AGGRESSION. REDIRECT AND REORIENT NEEDED. RESTING IN BED WITH EYES CLOSED AT THIS TIME. CONTINUE PLAN OF CARE.
--- NOTE | 2018-12-17 07:30 | NUR ---
REC'D PT IN HALLWAY WITH PEERS. AWAKE AND ALERT TO PERSON. CALM AND COOPERATIVE WITH ASSESSMENT. NO AGGRESSION NOTED. PRESCRIBED MEDS PROVIDED. MED COMPLIANT. FALL PRECAUTIONS IN PLACE. WILL CONTINUE TO MONITOR Q 15 MINUTES FOR SAFETY. WILL CPOC.
[2018-12-17 08:00] VITALS: BP 118/77
[2018-12-17 08:04] VITALS: BP 83/46
--- NOTE | 2018-12-17 13:57 | PN ---
PATIENT:KATHY DILLON MEDICAL RECORD: [id number] LOCATION:[facility] ADMISSION DATE: 11/28/18 PROGRESS NOTE DATE OF SERVICE: 12/16/2018 SUBJECTIVE: The patient's case was discussed with staff. He has no new complaint. OBJECTIVE: The patient denies intent to harm himself or others. He is much calmer, but very seriously and significantly confused. He did have an increase in his Klonopin a few days ago. It does not appear to be causing excessive sedation. I think that I am at a very near reaching the best balance between what can be done for him pharmacologically without causing problems or unwanted side effects from the medicine. I am concerned about his not eating, he is getting Megace, staff is trying very hard to get him to eat with very limited success. TRANSINT:[id number] Voice Confirmation ID: [id number] DOCUMENT ID: [id number] CHAPARRO COLBERT MD at 1357 CC: [id number] DICTATION DATE: 12/16/18 1649 JOURNEYMAN GLAZIER: 12/17/18 0030 ADM IN [facility] [address] [place] [address]
[2018-12-17 20:00] VITALS: BP 107/60
--- NOTE | 2018-12-18 01:00 | NUR ---
RECEIVED IN DAYROOM. SITTING ON COUCH WITH PEERS AT HIS SIDE. CALM AND COOPERATIVE WITH CARE AND ASSESSMENT. VERY CONFUSED. NO SIGNS OF AGGRESSION. REDIRECT AND REORIENT NEEDED RESTING IN BED WITH EYES CLOSED AT THIS TIME. CONTINUE PLAN OF CARE.
--- NOTE | 2018-12-18 07:30 | NUR ---
REC'D PT IN HALLWAY PACING. PT IS VERY ANXIOUS. ALERT TO SELF ONLY WITH INCREASED CONFUSION. NO AGGRESSION NOTED. CALM AND COOPERATIVE WITH ASSSESSMENT. PRESCRIBED MEDS PROVIDED. MED COMPLIANT. REDIRECT AND REORIENT NEEDED. FALL PRECAUTIONS IN PLACE. WILL CONTINUE TO MONITOR Q 15 MINUTES FOR SAFETY. WILL CPOC.
--- NOTE | 2018-12-18 10:06 | NUR ---
Nutrition Follow Up: Chart reviewed Diet: Regular [facility] Soft PO Intake: 46% - po intake improving BM: 12/17/18 Labs reviewed Meds noted including Megace Rec continue current diet. Will order Ensure with meals and will continue to honor food preferences. RD following.
[2018-12-18 11:41] VITALS: BP 84/38
--- NOTE | 2018-12-18 16:05 | PN ---
PATIENT:KATHY DILLON MEDICAL RECORD: [id number] LOCATION:[facility] ADMISSION DATE: 11/28/18 PROGRESS NOTE DATE OF SERVICE: 12/17/2018 SUBJECTIVE: The patient's case was discussed with staff. He has no new complaint. OBJECTIVE: The patient denies intent to harm himself or others. He is significantly calmer. Unfortunately, he is still not eating adequately. He is taking Megace to assist with appetite stimulation. His long-term prognosis is guarded. TRANSINT:[id number] Voice Confirmation ID: [id number] DOCUMENT ID: [id number] CHAPARRO COLBERT MD at 1605 CC: [id number] DICTATION DATE: 12/17/18 1414 GAMBRELER HELPER: 12/17/18 1542 ADM IN [facility] [address] [place] [address]
[2018-12-18 20:49] VITALS: BP 115/60
--- NOTE | 2018-12-19 13:50 | NUR ---
PT WANDERS AROUND THE UNIT BUT DOES NOT ATTEMPT TO ELOPE. PT IS EASILY REDIRECTED WHEN NEEDED. NO AGGRESSION NOTED. MEDICATIONS GIVEN ORDERED. PT ABLE TO EXPRESS NEEDS TO STAFF IE WATER TO DRINK AND SNACKS. FALL PRECAUTIONS MAINTAINED. WILL CONTINUE TO MONITOR AND CONTINUE WITH PLAN OF CARE.
--- NOTE | 2018-12-19 16:45 | PN ---
PATIENT:KATHY DILLON MEDICAL RECORD: [id number] LOCATION:[facility] ADMISSION DATE: 11/28/18 PROGRESS NOTE DATE OF SERVICE: 12/18/2018 SUBJECTIVE: The patient's case was discussed with staff. He has no new complaint. OBJECTIVE: The patient denies intent to harm himself or others. He generally tolerates his medicines well. He has limited insight about his situation. He actually did eat significantly better yesterday. ASSESSMENT: No change in diagnoses. PLAN: Current medicines have been reviewed and will be maintained. Long-term prognosis is guarded. TRANSINT:[id number] Voice Confirmation ID: [id number] DOCUMENT ID: [id number] CHAPARRO COLBERT MD at 1645 CC: [id number] DICTATION DATE: 12/18/18 173 LEGAL ADVISER: 12/19/18 0157 ADM IN [place] [id number] [place] [id number]
[2018-12-19 21:21] VITALS: BP 122/60
--- NOTE | 2018-12-20 04:28 | NUR ---
B) Patient is alert and oriented to self, very confused and wanders the hallways at times, intrusive with staff and wanders into other patients rooms at times I) Administered scheduled medications as ordered, redireted as needed, monitored for safety R) Mediation compliant, sleeping quietly in his bed, P) Continue plan of care.
[2018-12-20 15:43] VITALS: BP 101/35
--- NOTE | 2018-12-20 18:09 | NUR ---
IS VERY CONFUSED AND DISORIENTED.RESTLESS,WANDERS .COMPLIANT WITH STAFF AND MEDS.WILL CONTINUE WITH PLAN OF CARE,MONITOR FOR CHANGES AND SAFETY.
[2018-12-20 19:58] VITALS: BP 122/77
--- NOTE | 2018-12-21 04:02 | NUR ---
B) Patient is alert and oriented to self, remove pants and wanders at times, bizzare behavior, takes things apart I) Administered scheduled medications as ordered, monitored for safety, redirected as needed, R) Mediation compliant, needs frequent redirection whe awake, P) Continue plan of care.
[2018-12-21 07:04] VITALS: BP 120/26
--- NOTE | 2018-12-21 10:26 | NUR ---
PT CONTINUES TO WANDER THE UNIT BUT IS NOT AN ELOPEMENT RISK. ORIENTED TO PERSON ONLY. NO AGGRESSION NOTED. PT IS A FEEDER BUT DOES WELL WITH HIS INTAKE WHEN STAFF FEED HIM. MEDICATIONS GIVEN ORDERED. FALL PRECAUTIONS MAINTAINED. WILL CONTINUE TO MONITOR AND CONTINUE WITH PLAN OF CARE.
--- NOTE | 2018-12-21 12:41 | PN ---
PATIENT:KATHY DILLON MEDICAL RECORD: [id number] LOCATION:[facility] ADMISSION DATE: 11/28/18 PROGRESS NOTE DATE OF SERVICE: 12/20/2018 SUBJECTIVE: The patient's case was discussed with staff. He has no new complaint. OBJECTIVE: The patient is still anxious and doing a lot of exit seeking behaviors. He is generally cooperative with the staff. He is difficult to redirect on occasion but not in a severe way. I am pleased with his relative balance between his level of agitation and any sedating effects that the medicines may have when trying to relieve that underlying internal anxiety and agitation. I am not pleased with his oral intake, which is poor and continues to be poor; and if it does not improve, it is not consistent with long-term survival. TRANSINT:[id number] Voice Confirmation ID: [id number] DOCUMENT ID: [id number] CHAPARRO COLBERT MD at 1241 CC: [id number] DICTATION DATE: 12/20/18 1621 WOUND CARE TECHNICIAN: 12/20/18 1907 ADM IN [facility] [address] [place] [id number]
--- NOTE | 2018-12-21 12:41 | PN ---
PATIENT:KATHY DILLON MEDICAL RECORD: [id number] LOCATION:[facility] ADMISSION DATE: 11/28/18 PROGRESS NOTE DATE OF SERVICE: 12/19/2018 SUBJECTIVE: The patient's case was discussed with staff. He has no new complaint. OBJECTIVE: The patient is very confused. He wonders about and checks doors and windows, but he is not doing it in a way that is frantic or agitated. He is just simply calmly confused and exploring his environment. Unfortunately, last night, he kept going into another patient's room and the patient whose room he was much more cognitively intact and was patient kind and understanding and did not exacerbate the situation as the nurse was constantly having to redirect him. ASSESSMENT: No change in diagnoses. PLAN: Unfortunately, I think this patient is close to being as intact as I can make him and I probably have achieved the best balance between his symptoms and medications. If he continues to show this static plateaued level of improvement, I will plan to discharge him after the weekend. TRANSINT:[id number] Voice Confirmation ID: [id number] DOCUMENT ID: [id number] CHAPARRO COLBERT MD at 1241 CC: [id number] DICTATION DATE: 12/19/18 185 PURSE SEINER: 12/20/18 0037 ADM IN [place] [id number] [place] [address]
[2018-12-21 20:00] VITALS: BP 135/73
--- NOTE | 2018-12-21 22:28 | NUR ---
PATIENT IS CALM BUT VERY CONFUSED, HE WANDERS A LOT, NEEDS DIRECTION A LOT. COMPLIANT WITH MEDS, NO ADVERSE REACTION NOTED. WILL CONTINUE TO FOLLOW POC
--- NOTE | 2018-12-22 07:30 | NUR ---
REC'D PT IN HALLWAY WITH PEERS. AWAKE AND ALERT TO SELF. PT IS VERY CONFUSED. CALM AND COOPERATIVE WITH ASSESSMENT. NO AGGRESSION NOTED. PRESCRIBED MEDS PROVIDED. MED COMPLIANT. REDIRECT AND REORIENT NEEDED. FALL PRECAUTIONS IN PLACE. WILL CONTINUE TO MONITOR Q 15 MINUTES FOR SAFETY. WILL CPOC.
[2018-12-22 08:26] VITALS: BP 106/62
--- NOTE | 2018-12-22 12:51 | PN ---
PATIENT:KATHY DILLON MEDICAL RECORD: [id number] LOCATION:[facility] ADMISSION DATE: 11/28/18 PROGRESS NOTE DATE OF SERVICE: 12/21/2018 SUBJECTIVE: The patient's case was discussed with staff. He has no new complaint. OBJECTIVE: The patient is in good behavioral control. He is still wondering about checking doors. I am encouraged in that he ate basically all of his lunch and dinner yesterday and seems to be eating better today. This is encouraging and if this level of improvement continues, I anticipate he can be transitioned out of the hospital soon. TRANSINT:[id number] Voice Confirmation ID: [id number] DOCUMENT ID: [id number] CHAPARRO COLBERT MD at 1251 CC: [id number] DICTATION DATE: 12/21/18 1253 CIRCLE BEVELER: 12/21/18 1454 ADM IN [facility] [address] [place] [id number]
[2018-12-22 20:00] VITALS: BP 121/71
--- NOTE | 2018-12-22 22:06 | NUR ---
PATIENT PACES CONTINOUSLY, CONFUSED, HAS TO BE REDIRECTED, COMPLIANT WITH MEDS, NO ADVERSE REACTION, WILL FOLLOW POC
--- NOTE | 2018-12-23 07:30 | NUR ---
REC'D PT IN HALLWAY PACING. ALERT TO SELF ONLY. PT IS CALM AND COOPERATIVE WITH ASSESSMENT. NO AGGRESSION NOTED. REDIRECT AND REORIENT NEEDED. PRESCRIBED MEDS PROVIDED. MED COMPLIANT. FALL PRECAUTIONS IN PLACE. WILL CONTINUE TO MONITOR Q 15 MINUTES FOR SAFETY.
--- NOTE | 2018-12-23 15:51 | NUR ---
SW HAS MADE MULTIPLE ATTEMPTS TO CONTACT SON TODAY TO DISCUSS DISCHARGE PLANNING. SW LEFT MESSAGE ON [phone] AND EXPLAINED PT HAD BEEN ACCEPTED TO [facility]. LOGAN EXPLAINED DELAY OF DISCHARGE AND INSURANCE MAY NOT BE ABLE TO COVER MORE OF THE HOSPITAL STAY.
--- NOTE | 2018-12-23 15:53 | PN ---
PATIENT:KATHY DILLON MEDICAL RECORD: [id number] LOCATION:[facility] ADMISSION DATE: 11/28/18 PROGRESS NOTE DATE OF SERVICE: 12/22/2018 SUBJECTIVE: The patient's case was discussed with staff. He has no new complaint. OBJECTIVE: The patient is in good behavioral control with limited insight about his condition. He is tolerating his medicines well. ASSESSMENT: No change in diagnoses. PLAN: The patient's Klonopin is going to be increased to a total of 2 mg daily. He will be monitored for clinical changes associated with its use. His long-term prognosis is guarded. TRANSINT:[id number] Voice Confirmation ID: [id number] DOCUMENT ID: [id number] CHAPARRO COLBERT MD at 1553 CC: [id number] DICTATION DATE: 12/22/18 1302 COMMERCIAL ROOFER: 12/22/18 1805 ADM IN [place] [id number] [place] [address]
[2018-12-23] MEDS ORDERED: GEODON20 MG PO (17:15)
[2018-12-23] MEDS ORDERED: MEGACE ES625 MG/5 M PO (17:16)
[2018-12-23] MEDS ORDERED: VITAMIN D5000 UNIT PO (17:16)
[2018-12-23] MEDS ORDERED: KLONOPIN1 MG PO (17:16)
[2018-12-23] MEDS ORDERED: MIRALAX17 GM PO (17:16)
[2018-12-23] MEDS ORDERED: FLUTICASONE PRO16 GM NASAL (17:16)
[2018-12-23 20:27] VITALS: BP 124/103
--- NOTE | 2018-12-24 02:54 | NUR ---
B) Patient is alert and oriented to self, wanders at times, does redirect this shift, I) Administered scheduled medications as ordered, R) Mediation compliant, resting quietly in bed now,] P) Continue plan of care.
--- NOTE | 2018-12-24 07:30 | NUR ---
REC'D PT IN HALLWAY PACING. PT IS AWAKE AND VERY CONFUSED. PT CALM AND COOPERATIVE WITH ASSESSMENT. PRESCRIBED MEDS PROVIDED. MED COMPLIANT. FALL PRECAUTIONS IN PLACE. WILL CONTINUE TO MONITOR Q 15 MINUTES FOR SAFETY. WILL CONTINUE PLAN OF CARE.
[2018-12-24 08:30] VITALS: BP 109/64
--- NOTE | 2018-12-24 13:04 | NUR ---
Nutrition Follow Up: Chart reviewed Diet: Regular Mech Soft; Ensure TID PO Intake: 57% meal avg - po intake is improving BM: 12/22/18 Labs reviewed Meds noted including Megace Rec continue current diet, supplement regimen. RD following.
--- NOTE | 2018-12-24 15:32 | PN ---
PATIENT:KATHY DILLON MEDICAL RECORD: [id number] LOCATION:[facility] ADMISSION DATE: 11/28/18 PROGRESS NOTE DATE OF SERVICE: 12/23/2018 SUBJECTIVE: The patient's case was discussed with staff. He has no new complaint. OBJECTIVE: The patient is reasonably calm. He has limited insight about his condition. He does tolerate his medicines well. ASSESSMENT: No change in diagnoses. PLAN: The patient will be transitioned out of the hospital tomorrow. Long-term prognosis is guarded. TRANSINT:[id number] Voice Confirmation ID: [id number] DOCUMENT ID: [id number] CHAPARRO COLBERT MD at 1532 CC: [id number] DICTATION DATE: 12/23/18 171 ENDLESS TRACK VEHICLE MECHANIC: 12/23/18 1840 ADM IN [place] [id number] [place] [address]
[2018-12-24 21:16] VITALS: BP 144/74
--- NOTE | 2018-12-25 03:40 | NUR ---
B) PATIENT IS CONFUSED, BUT ALERT TO SELF. HE WANDERS INTO PATIENT ROOMS AND VOIDS IN THEIR ROOM. NEEDS A LOTS OF REDIRECTION. I) ADMINISTERED SCHEDULED MEDICATIONS, MONITOR FOR SAFETY R) MEDICATION COMPLIANT, QUIET AND LYING IN BED. P) CONTINUE PLAN OF CARE.
--- NOTE | 2018-12-25 04:20 | NUR ---
PATIENT GOT OUT OF BED AND WALKED TO DOORWAY OF ROOM, HE WAS UNSTEADY AND HIT HIS ELBOW ON DOORFACING AND GOT A SMALL SKIN TEAR. NO OTHER INJURY NOTED. RETURNED TO BED AND CLEANED LEFT ELBOW AND DRESSED WITH A BAND-AID
--- NOTE | 2018-12-25 06:50 | NUR ---
DR. TERRY NOTIFIED OF INCIDENT. VITAL SIGNS TAKEN AND NEUROS CHECKED.
--- NOTE | 2018-12-25 07:10 | NUR ---
ATTEMPTED TO NOTIFY , BUT NO ANSWER.
--- NOTE | 2018-12-25 07:30 | NUR ---
B) PT IS ALERT WITH NO CONFUSION NOTED. PT PACES DURING THE SHIFT. PT. NEEDS LOT OF REDIRECTION I) ADMINISTERED SCHEDULED MEDICATIONS, MONITOR FOR SAFETY R) MED COMPLIANT P) CPOC
[2018-12-25 08:08] VITALS: BP 132/104
--- NOTE | 2018-12-25 15:23 | PN ---
PATIENT:KATHY DILLON MEDICAL RECORD: [id number] LOCATION:[facility] ADMISSION DATE: 11/28/18 PROGRESS NOTE DATE OF SERVICE: 12/24/2018 SUBJECTIVE: The patient's case was discussed with staff. He has no new complaint. OBJECTIVE: The patient is tolerating his medicines reasonably well. He has pretty limited insight about his condition. ASSESSMENT: No change in diagnoses. PLAN: The patient will be transitioned out of the hospital soon. There are some financial and transportation arrangements that are being made. TRANSINT:[id number] Voice Confirmation ID: [id number] DOCUMENT ID: [id number] CHAPARRO COLBERT MD at 1523 CC: [id number] DICTATION DATE: 12/24/18 1626 MGMT ANALYST: 12/24/18 2115 ADM IN [place] [id number] [place] [address]
[2018-12-25 20:22] VITALS: BP 116/57
--- NOTE | 2018-12-26 01:04 | NUR ---
B) Patient is alert and oriented to self, restless and does not redirect well, put himself in the floor to try to pickup the floor tiles, I) Administered scheduled medications as ordered, monitored for safety R) Mediation compliant, sleeping quietly in bed now, P) Continue plan of care.
[2018-12-26 08:14] VITALS: BP 113/95
--- NOTE | 2018-12-26 11:47 | NUR ---
B) The patient is confused, he knows his name. He is confused and he tries to put kleenex on his feet and stuff it in his pants. He does not understand simple direction. He ambulates independently. I) Provide prescribed meds, redirect as needed. R) The patient is compliant with meds, he likes to wander. He has not shown any aggression today. P) Continue POC.
--- NOTE | 2018-12-26 15:20 | PN ---
PATIENT:KATHY DILLON MEDICAL RECORD: [id number] LOCATION:[facility] ADMISSION DATE: 11/28/18 PROGRESS NOTE DATE OF SERVICE: 12/25/2018 SUBJECTIVE: The patient's case was discussed with staff. He has no new complaint. OBJECTIVE: The patient is hypotensive today, probably it is related to his clonidine. That has been held. I will leave managing his blood pressure or in this instance or at this time low blood pressure to his primary care physician. With regard to his dementia and behavior problems, there is really no change and I think he is very close to his new baseline level of functioning, which is low. ASSESSMENT: No change in diagnoses. PLAN: Hopefully, the patient can be transitioned to an outpatient setting soon if his current medications can be adjusted so that he is not hypotensive. TRANSINT:[id number] Voice Confirmation ID: [id number] DOCUMENT ID: [id number] CHAPARRO COLBERT MD at 1520 CC: [id number] DICTATION DATE: 12/25/18 1602 BARN AND PROPERTY MANAGER: 12/25/18 2315 ADM IN [facility] [address] [place] [id number]
[2018-12-26 20:47] VITALS: BP 110/43
--- NOTE | 2018-12-27 05:21 | NUR ---
B) Patient is alert and oriented to self, very confused and wanders, I) Administered scheduled medications as ordered, R) Mediation compliant, bizzare behavior at times, P) Continue plan of care.
[2018-12-27 08:14] VITALS: BP 135/85
--- NOTE | 2018-12-27 10:00 | NUR ---
PATIENT IS AWAKE AND ALERT, WITH CONFUSION NOTED. HE IS VERY RESTLESS TODAY. WANDERS AROUND THE UNIT. COMPLIANT WITH MEDICATIONS. TO DISCHARGE TODAY AT 1400 PM. PAPERWORK COMPLETED AND SENT WITH PATIENT.
--- NOTE | 2018-12-27 11:32 | PN ---
PATIENT:KATHY DILLON MEDICAL RECORD: [id number] LOCATION:[facility] ADMISSION DATE: 11/28/18 PROGRESS NOTE DATE OF SERVICE: 12/26/2018 SUBJECTIVE: The patient's case was discussed with staff. He has no new complaint. OBJECTIVE: The patient is in good behavioral control with poor insight about his condition. He tolerates his medicines well. ASSESSMENT: No change in diagnoses. PLAN: Brief supportive and educational interventions were made. Long-term prognosis is guarded. TRANSINT:[id number] Voice Confirmation ID: [id number] DOCUMENT ID: [id number] CHAPARRO COLBERT MD at 1132 CC: [id number] DICTATION DATE: 12/26/18 1607 ENTREPRENEURSHIP PROGRAM DIRECTOR: 12/26/18 1836 ADM IN [place] [address] [place] [address]
--- NOTE | 2018-12-27 14:00 | NUR ---
MCCONNELL RO[facility] CONTOUR GRINDER HERE DTO TRANSPORT PATIENT TO [facility].
--- NOTE | 2019-01-02 15:50 | DS ---
PATIENT:KATHY DILLON :37 MEDICAL RECORD: [id number] DISCHARGE SUMMARY ADMISSION DATE: 11/28/18 DISCHARGE DATE: 12/27/18 IDENTIFYING DATA: The patient is 83 years old and he was admitted to the hospital on a voluntary basis because of aggression. The patient lives in the [facility] in [place]. Apparently, he has been combative with his and some staff members there. He has no recollection of this and in fact becomes upset and distressed when I mention it. Apparently, he has been having both visual and auditory hallucinations in addition to the aggression, but he has no ability to discuss that with me or describe what is going on because of his advanced dementia. The diagnosis of dementia is longstanding and it clearly has advanced. HOSPITAL COURSE: The patient was admitted to the hospital and fully evaluated from both a medical, psychological, and social standpoint. He was treated with both mood stabilizing and memory enhancing medications and through the course of the hospitalization, various combinations were tried, regulated and he either would have no improvement or not enough improvement or excessive sedation. Finally, a reasonable balance between the beneficial and unbeneficial effects of the medicine was achieved, and he was transitioned out of the hospital and back to the [facility]. DISCHARGE DIAGNOSES: AXIS I: Senile dementia of the Alzheimer's type with behavioral disturbances. AXIS II: None. AXIS III: Hypertension. AXIS IV: Moderate. AXIS V: Global assessment of functioning is 30. PLAN: At the time of discharge, the patient was in good behavioral control and had no active thoughts of harming himself or others. He was participating in treatment minimally. His followup will be with his primary care [facility] physician. There are going to be episodes of some agitation that will be difficult to redirect, but I do think that he currently is not dangerous and that there is a reasonable balance of risk and benefit in what has been achieved with his medicines after some difficulty and numerous trials of various combinations. TRANSINT:[id number] Voice Confirmation ID: [id number] DOCUMENT ID: [id number] CHAPARRO COLBERT MD at 1550 CC: [id number] DICTATION DATE: 12/31/18 1536 JEWELRY MODEL MAKER: 01/01/19 0419 DIS IN 12/27/18 [facility] [address] [place] [address]
--- NOTE | 2019-01-02 15:50 | PN ---
PATIENT:KATHY DILLON MEDICAL RECORD: [id number] LOCATION:[facility] ADMISSION DATE: 11/28/18 PROGRESS NOTE DATE OF SERVICE: 12/27/2018 SUBJECTIVE: The patient's case was discussed with staff. He has no new complaint. OBJECTIVE: The patient is agitated. He is pushing the desk away from him or the table that he is sitting that away from him and wants to get up and walk about. He is a little unsteady and has to be paralleled by a staff member. I am not sure why he is unsteady, but formally he has been walking better. He may just be having a bad day. Despite all of this, he has not been aggressive and has not been aggressive for at least a week. He does check doors and wander about. He is doing this restlessness without any aggressive behavior and I think we have reached the best balance between calming him and causing any unwanted side effects. He is going to be discharged to the half-way today. I think his prognosis is unfortunately extremely poor. His dementia is very advanced and I would highly recommend comfort care, palliative measures for him. TRANSINT:[id number] Voice Confirmation ID: [id number] DOCUMENT ID: [id number] CHAPARRO COLBERT MD at 1550 CC: [id number] DICTATION DATE: 12/27/18 1108 INTAKE RN: 12/27/18 1218 DIS IN 12/27/18 [facility] [address] [place] [address]
== END 2018-12-27 14:00 | disposition home or self-care (01) | DRG 57 ==
LOC: D.PSYCH 13:18
PROVIDERS: Family Medicine; ADMIT Psychiatry & Neurology Psychiatry
DX: G30.1 Alzheimer's disease with late onset (principal); F02.81 Dementia in other diseases classified elsewhere, unspecified severity, with behavioral disturbance; I10 Essential (primary) hypertension; E78.5 Hyperlipidemia, unspecified; K57.90 Diverticulosis of intestine, part unspecified, without perforation or abscess without bleeding; M19.90 Unspecified osteoarthritis, unspecified site; E55.9 Vitamin D deficiency, unspecified; R63.0 Anorexia; E86.0 Dehydration; J30.9 Allergic rhinitis, unspecified

== ENCOUNTER 2021-02-12 19:58 | Inpatient (IN) | payer MEDICARE, BC ==
[~2021-02-12 19:58] MED LIST: CARDURA4 MG PO; CATAPRES0.1 MG PO; CERTIRIZINE PO; FERROUS SULFAT325 MG PO; FLUTICASONE PRO16 GM NASAL; GEODON20 MG PO; KLONOPIN1 MG PO; MEGACE ES625 MG/5 M PO; MIRALAX17 GM PO; PROTONIX40 MG PO; RIVASTIGMINE3 MG PO; SEROQUEL25 MG PO; TOPROL XL50 MG PO; VITAMIN D5000 UNIT PO; ZESTRIL40 MG PO; ZYRTEC10 MG PO
[2021-02-12] MEDS ORDERED: ERGOCALCIF50000 UNIT PO (20:05)
[2021-02-12] MEDS ORDERED: CLARITIN 10 MG10 MG PO (20:05)
[2021-02-12] MEDS ORDERED: PRAVACHOL20 MG PO (20:06)
[2021-02-12] MEDS ORDERED: MIRALAX17 GM PO (20:06)
[2021-02-12] MEDS ORDERED: SEROQUEL50 MG PO (20:07)
[2021-02-12] MEDS ORDERED: BUSPAR 15 MG TA15 MG PO (20:07)
[2021-02-12 20:41] LABS: BILIRUBIN NEGATIVE (NEGATIVE); KETONE NEGATIVE (NEGATIVE); NITRITE NEGATIVE (NEGATIVE); UROBILINOGEN NORMAL mg/dL (< 2)
[2021-02-12 20:48] LABS: UDS - AMPHET NEGATIVE QUAL (NEGATIVE); UDS - BARB NEGATIVE QUAL (NEGATIVE); UDS - BENZO NEGATIVE QUAL (NEGATIVE); UDS - COCAINE NEGATIVE QUAL (NEGATIVE); UDS - OPIATE NEGATIVE QUAL (NEGATIVE); UDS - PCP NEGATIVE QUAL (NEGATIVE); UDS - THC NEGATIVE QUAL (NEGATIVE)
[2021-02-12 20:50] LABS: BACTERIA FEW HPF (NONE SEEN); SQUAMOUS EPITHELIAL 0-5 HPF (0-4); WHITE CELLS - URINE 0-5 HPF (0-1)
[2021-02-12 21:38] LABS: BASOPHILS 0.3 % (0-2); EOSINOPHILS 1.1 % (0-7); HEMATOCRIT 36.6 % (42.0-54.0); HEMOGLOBIN 12.1 g/dL (13.5-17.5); IMMATURE GRANULOCYTES 0.2 % (0-5); LYMPHOCYTES 25.6 % (15-50); MCH 30.6 pg (26.0-34.0); MCHC 33.1 g/dL (31.0-37.0); MCV 92.4 fL (80.0-100.0); MEAN PLATELET VOLUME 9.1 fL (7.4-10.4); MONOCYTES 13.1 % (2-11); NEUTROPHIL ABS# 3.73 10x3/uL (1.78-5.38); NEUTROPHILS 59.7 % (40-80); PLATELET COUNT 279 10x3/uL (130-400); RBC 3.96 10x6/uL (4.20-6.10); RDW 13.2 % (11.5-14.5); WBC 6.3 10x3/uL (4.8-10.8)
[2021-02-12 21:46] LABS: ANION GAP 11.1 mmol/L (8-16); CALCIUM 9.3 mg/dL (8.5-10.1); CARBON DIOXIDE 27.8 mmol/L (21.0-32.0); CREATININE - SERUM 1.1 mg/dL (0.6-1.3); POTASSIUM - SERUM 3.9 mmol/L (3.5-5.1)
[2021-02-12 21:59] LABS: ALBUMIN 3.7 g/dL (3.4-5.0); BILIRUBIN - TOTAL 0.22 mg/dL (0.2-1.3); MAGNESIUM - SERUM 2.4 mg/dL (1.8-2.4); THYROID STIMULATING HORMONE 2.19 uIU/mL (0.36-3.74)
--- NOTE | 2021-02-12 22:50 | NUR ---
PT HAS WALKING SHOE/POST OP SHOE TO R FOOT ON ARRIVAL
--- NOTE | 2021-02-13 | NUR ---
PT GIVEN WATER AND SANDWICH BOX PT SITTING IN CHAIR AT THIS TIME.
[2021-02-13 01:32] VITALS: BP 136/78; BMI 21.1
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
--- NOTE | 2021-02-13 03:32 | NUR ---
PATIENT GIVEN ATIVAN 0.5 MG IM AND HALDOL 2 MG FOR ANXIETY AND RESTLESSNESS, AT 03:30 AM .
[2021-02-13 06:43] LABS: CHOL - HDL RATIO 2.3 ratio (2.3-4.9); LDL-HDL RATIO 1.2 ratio (1.5-3.5); THYROID STIMULATING HORMONE 2.47 uIU/mL (0.36-3.74)
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
--- NOTE | 2021-02-13 15:00 | NUR ---
PATIENT REFUSING TO STAY IN ROOM, PACING HALLWAY, UNABLE TO RE-DIRECT. PATIENT BECOMING INCREASINGLY AGITATED.
--- NOTE | 2021-02-13 15:35 | NUR ---
PATIENT CONTINUES TO PACE, UNABLE TO RE-DIRECT. PATIENT VOIDED IN PAPITO-CHAIR OUTSIDE HIS ROOM. PATIENT CLEANED AND PLACED IN GOWN. ATTEMPTED TO DIRECT PATIENT BACK INTO ROOM, PT. BECAME COMBATIVE, SWINGING AT STAFF, ANGRILY TALKING TO STAFF. COMPLETELY UNABLE TO RE-DIRECT AND PT. ESCALATING AT RAPID RATE. ATIVAN 0.5 MG AND HALDOL 2 MG ADMIN IM. PATIENT PLACED IN PAPITO-CHAIR AND SMALL ENGINE TECHNICIAN WAS SENT TO SIT WITH PATIENT PER ASW/ASUW TACTICAL AIR CONTROLLER.
--- NOTE | 2021-02-13 16:00 | NUR ---
PATIENT RESTING QUIETLY IN PAPITO-CHAIR AT NURSES DESK. RESPONDED WELL TO PRN MEDICATION.
--- NOTE | 2021-02-13 17:15 | NUR ---
PATIENT AWAKE AND CONFUSED. ESCALATING. INCREASING AGITATION.
--- NOTE | 2021-02-13 17:39 | NUR ---
Patient continues to attempt to rise without assistance and poses a danger to himself. He is unsteady and has rec'd a 1st injection of Haldol and Ativan. He does not redirect and cannot comprehend or follow even simple directions. Haldol and Ativan given IM per orders. Will continue to assess physical and mental ability.
[2021-02-13 22:11] VITALS: BP 189/97
--- NOTE | 2021-02-13 22:56 | NUR ---
PT IS ALERT AND ORIENTED TO SELF ONLY. POOR INSIGHT INTO HIS SITUATION. RECEIVED IN A GERICHAIR. RESTLESS. RESISTANT TO REDIRECTION. UNABLE TO FOLLOW SIMPLE COMMANDS. COMPLIANT WITH ALL MEDICATIONS. VERY UNSTEADY ON HIS FEET. MONITOR FOR SAFETY.
[2021-02-14 08:00] VITALS: BP 149/65
[2021-02-14 10:46] VITALS: Wt 62.8 kg
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
--- NOTE | 2021-02-14 17:15 | NUR ---
RECEIVED IN PATIENT ROOM. SITTING ON SIDE OF BED. CONFUSED. NO AGGRESSIVE BEHAVIOR TODAY. REDIRECT AND REORIENT NEEDED. EATING DINNER AT THIS TIME. CONTINUE PLAN OF CARE.
[2021-02-14 22:16] VITALS: BP 154/53
--- NOTE | 2021-02-15 01:05 | NUR ---
B)RECEIVED PATIENT STANDING AT THE NURSE'S STATION ASKING FOR KLEENEX. ORIENTED TO SELF ONLY. RELATED "WITH THIS GOOD BESSY CUMMINGS. THEY ARE ALL GOOD." WHEN ASKED IF HE KNEW WHERE HE IS. NO INSIGHT INTO THE REASON HE IS HOSPITALIZED. WANDERS THE HALLWAY. I)ADMINISTER MEDS AND MONITOR COMPLIANCE. MONITOR BEHAVIOR AND REDIRECT FOR AGGRESSION. R)MED COMPLIANT. NO AGGRESSION NOTED. REMAINS VERY CONFUSED AND DISORIENTED. P)CONTINUE POC AND PROVIDE SAFE ENVIRONMENT.
[2021-02-15 07:16] LABS: RAPID PLASMA REAGIN Non Reactive (Non Reactive)
--- NOTE | 2021-02-15 13:28 | NUR ---
REC'D PT PACING HALLWAY BY NURSES STATION. AWAKE AND ALERT TO PERSON ONLY. CALM AND COOPERATIVE WITH ASSESSMENT. PRESCRIBED MEDS PROVIDED ORDERED. MED COMPLIANT AT THIS TIME. PT HAS LITTLE INSIGHT INTO HIS SITUATION AT THIS TIME. PT IS VERY CONFUSED. PT CAN BECOME AGGRESSIVE WITH CARE AND REDIRECTION AT TIMES. REDIRECT AND REORIENT NEEDED. FALL PRECAUTIONS IN PLACE FOR SAFETY. WILL CPOC.
--- NOTE | 2021-02-15 16:48 | PN ---
PATIENT:KATHY DILLON MEDICAL RECORD: [id number] LOCATION:[facility] ADMISSION DATE: 02/12/21 PROGRESS NOTE DATE OF SERVICE: 02/14/2021 SUBJECTIVE: The patient's case was discussed with staff. He has no new complaint. OBJECTIVE: The patient is cooperative, but severely impaired cognitively. He is not eating adequately, only eating a portion of what is offered to him daily. ASSESSMENT: Dementia. PLAN: I am going to increase the patient's BuSpar slightly with the idea that perhaps he is having some anxiety and that is perhaps part of his underlying agitation. His dementia is advanced. He was apparently diagnosed 5 years ago. TRANSINT:[id number] Voice Confirmation ID: [id number] DOCUMENT ID: [id number] CHAPARRO COLBERT MD at 1648 CC: [id number] DICTATION DATE: 02/14/211737 CUSTOMER SERVICE DRIVER: 02/15/21 0051 ADM IN [facility] [address] [place] [address]
[2021-02-15 20:00] VITALS: BP 110/89
--- NOTE | 2021-02-15 20:10 | NUR ---
RECEIVED IN HALLWAY. SOCIALIZING WITH PEERS AND STAFF. CALM AND COOPERATIVE WITH CARE AND ASSESSMENT. NO SIGNS OF AGGRESSION. REDIRECT AND REORIENT NEEDED. RESTING QUIETLY IN BED AT THIS TIME. CONTINUE PLAN OF CARE.
[2021-02-16 08:16] VITALS: BP 162/83
--- NOTE | 2021-02-16 10:14 | NUR ---
Received patient pacing hallways on nurses station. Awake and alert to person only. Assessment completed. Patient becomes very aggressive with staff upon redirection. Patient enters other patients room at this time. Patient has little insight to his into his situation. Prescribed medications provided as ordered. Med compliant at this time. Redirect and reorient as needed. Fall precautions in place for safety. Will continue plan of care.
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
--- NOTE | 2021-02-16 10:48 | NUR ---
Nutrition Re-Assessment Diet: Regular PO intake: ~45% average x last 9 meals (varied 0-100%) Last BM: 02/15/21 Wt: 142# (02/14/21); Admit Wt: 142# (02/13/21) Meds noted: miralax Labs reviewed Estimated nutrition needs and nutrition diagnosis remain unchanged from initial nutrition assessment at this time. Patient is progressing towards meeting nutrition goals at this time. Recommendations/Interventions: -Recommend continue Regular diet. Recommend encourage PO intake at meal times. -Will continue to honor food preferences. -Will add Ensure with meals. -Will continue to monitor PO intake and wt trend. -RD will follow-up within 7 days.
--- NOTE | 2021-02-16 16:20 | PN ---
PATIENT:KATHY DILLON MEDICAL RECORD: [id number] LOCATION:[facility] ADMISSION DATE: 02/12/21 PROGRESS NOTE DATE OF SERVICE: 02/15/2021 SUBJECTIVE: The patient's case was discussed with staff. He has no new complaint. OBJECTIVE: The patient is confused and restless, but he has not been openly aggressive. ASSESSMENT: Dementia. PLAN: Current medicines have been reviewed and will be maintained. 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 TRANSINT:[id number] Voice Confirmation ID: [id number] DOCUMENT ID: [id number] CHAPARRO COLBERT MD at 1620 CC: [id number] DICTATION DATE: 02/15/21 170 PRESCRIPTION BENEFIT SPECIALIST: 02/16/21 0017 ADM IN [facility] [address] [place] [address]
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
[2021-02-16 20:00] VITALS: BP 165/74
--- NOTE | 2021-02-16 21:14 | NUR ---
PT IS ALERT AND ORIENTED TO SELF ONLY. RECEIVED IN A GERICHAIR IN THE HALLWAY OUTSIDE THE NURSES STATION. RESTLESS AT TIME. REQUIRES CONSTANT REDIRECTION AND IS VERY RESISTANT TO REDIRECTION. COMPLIANT WITH ALL MEDICATIONS. NO AGGRESSION NOTED. MONITOR FOR SAFETY.
[2021-02-17 08:51] VITALS: BP 147/86
--- NOTE | 2021-02-17 14:10 | NUR ---
Patient was rec'd this am up in a chair. He is A/O times one most of the time as he will occ. look at you when you call his name but other times he demonstrates no knowledge of anyone present. He is ambulatory and requires a place to roam. He is quiet and cooperative. He has a slight unsteady gait. He is med compliant and takes meds crushed and placed in food. He became vagly aggressive with nurse this am when she was redirecting him but was redirectable and kept ambulating. He is restless, constant. He is searching airmlessly. He walked aroung when group was being conducted.
--- NOTE | 2021-02-17 16:13 | PN ---
PATIENT:KATHY DILLON MEDICAL RECORD: [id number] LOCATION:[facility]yn[facility] ADMISSION DATE: 02/12/21 PROGRESS NOTE DATE OF SERVICE: 02/16/2021 SUBJECTIVE: The patient's case was discussed with staff. He has no new complaint. OBJECTIVE: The patient has had some significant agitation and disruptive behaviors. He was p.r.n. today because of this. I am going to change his Seroquel to Geodon. His long-term prognosis is guarded. TRANSINT:[id number] Voice Confirmation ID: [id number] DOCUMENT ID: [id number] CHAPARRO COLBERT MD at 1613 CC: [id number] DICTATION DATE: 02/16/21 1637 FLIGHT SIMULATOR TEACHER: 02/16/21 2340 ADM IN [facility] [id number] [place] [address]
[2021-02-17 20:00] VITALS: BP 146/88
--- NOTE | 2021-02-18 01:42 | NUR ---
B) Patient is alert and oriented to self, very confused and wanders, very unaware and will wander out of his room not wearing pants, I) Administered scheduled medications as ordered, redirected as needed, monitored for safety R) medication compliant, difficult to redirect, P) Continue plan of care.
--- NOTE | 2021-02-18 11:20 | NUR ---
PT VERY NERVOUS, PACING, UNABLE TO REDIRECT AT THIS TIME. ATIVAN 0.[address] COLBERT PRN ORDER.
--- NOTE | 2021-02-18 11:57 | PN ---
PATIENT:KATHY DILLON MEDICAL RECORD: [id number] LOCATION:[facility] ADMISSION DATE: 02/12/21 PROGRESS NOTE DATE OF SERVICE: 02/17/2021 SUBJECTIVE: The patient's case was discussed with staff. He has no new complaint. OBJECTIVE: The patient is disorganized and confused. He has been aggressive with staff. I think it is related to his confusion and inability to process information in his environment. PLAN: I am going to treat him with a low dose of Klonopin to assist with this agitation. He will be monitored for clinical changes associated with its use. TRANSINT:[id number] Voice Confirmation ID: [id number] DOCUMENT ID: [id number] CHAPARRO COLBERT MD at 1157 CC: [id number] DICTATION DATE: 02/17/21 170 TRAINING AND DEVELOPMENT OFFICER: 02/17/21 1841 ADM IN [facility] [address] [place] [address]
--- NOTE | 2021-02-18 12:20 | NUR ---
PRN NOT EFFECTIVE AT THIS TIME. STAFF CONSTANTLY REDIRECT WITH PT. FALL RISK.
[2021-02-18 15:05] VITALS: BP 130/80
--- NOTE | 2021-02-18 17:50 | NUR ---
PT CONFUSED AND DISORIENTED. UNABLE TO REDIRECT AT THIS TIME. ATTEMPTED TO REDIRECT AND REORIENT NEEDED. PT UNABLE TO FOLLOW VERBAL COMMANDS. PT CAN STATE NAME. ASSIST WITH ADLS, FEEDING AND NEEDS. CAN NOT MAKE NEEDS KNOWN. NO AGGRESSION NOTED. CHAIR ALARM IN PLACE AND ACTIVE. WILL CONT PLAN OF CARE.
[2021-02-18 20:00] VITALS: BP 161/89
--- NOTE | 2021-02-18 20:22 | NUR ---
RECEIVED PATIENT ON UNIT IN [facility] [place], HE IS VERY CONFUSED, PLEASANT, HE DID VOMIT ONCE, NO FEVER, WILL MONITOR PATIENT FOR MORE N/V. HE TOOK HIS MEDS AND HAS HELD HIS MEDS DOWN THUS FAR. HE IS ONLY ORIENTED TO SELF. WILL FOLLOW POC
[2021-02-19 09:00] VITALS: BP 140/88
--- NOTE | 2021-02-19 13:21 | NUR ---
pt is confused and alert to self only. redirect and reorient as needed. pt is difficult to redirect due to low cognitive ability. pt conts to pace and attempt to car pick up driver unseen things on the floor. pt requires constant attention from staff due fall risk. nonskid socks in place. pt is calm and cooperative with staff. compliant with meds, vitals and assessments. pt can make some needs known. incont requires q 2 hr and prn care. chair in place if needed. bed alarm in place. will cont plan of care.
--- NOTE | 2021-02-19 21:52 | NUR ---
B)RECEIVED PATIENT LYING IN HIS BED. ORIENTED TO SELF ONLY. NO INSIGHT TO THE REASON FOR HOSPITALIZATION. PACES THE HALLWAY. WILL STAND AT THE NURSE'S STATION. COMMUNICATION IMPAIRED DUE TO DECREASED ABILITY TO FOLLOW TOPIC OF CONVERSATION. I)ADMINISTER MEDS AND MONITOR COMPLIANCE. REORIENT NEEDED. R)MED COMPLIANT. POOR REORIENTATION. PATIENT WILL JUST MUMBLE TO HIMSELF AND WALK AWAY IN THE PROCESS OF REORIENTING HIM. CALM AND COOPERATIVE. P)CONTINUE POC AND PROVIDE SAFE ENVIRONMENT.
--- NOTE | 2021-02-20 01:26 | NUR ---
ATIVAN IM PRN GIVEN FOR ANXIOUS ACTIVITY, WANDERING INTO OTHER PATIENT'S ROOMS AND NOT ABLE TO REDIRECT. WILL MONITOR EFFECTIVENESS
--- NOTE | 2021-02-20 10:35 | NUR ---
REC'D PT IN HALLWAY IN RECLINING CHAIR. PT CONTINUES TO ATTEMPT TO GET UP WITHOUT ASSISTANCE. REDIRECT AND EDUCATED PER STAFF. AWAKE AND ALERT TO PERSON ONLY. CALM AND COOPERATIVE WITH ASSESSMENT. PRESCRIBED MEDS PROVIDED ORDERED. MED COMPLIANT. REDIRECT AND REORIENT NEEDED. PT IS VERY ANXIOUS, RESTLESS, AND CAN BECOME COMBATIVE WITH REDIRECTION. FALL PRECAUTIONS IN PLACE. WILL CPOC.
[2021-02-20 12:10] VITALS: BP 120/80
--- NOTE | 2021-02-20 17:58 | NUR ---
PT NOTED LYING ON THE FLOOR. PT ASSESSED PER STAFF. DR. DARNELL PRESENT AT THIS TIME. NO S/SX OF PAIN OR DISCOMFORT NOTED OR VOICED. V/S 161/100, 98.2,87,16. ATTEMPTED TO CALL SPOUSE CARLEY AND SON BRYSON UNABLE TO CONTACT AT THIS TIME. NEURO'S COMPLETED AT THIS TIME.
--- NOTE | 2021-02-20 19:25 | NUR ---
RESTLESS. INCREASING ANXIETY. PO ATIVAN 0.5 MG GIVEN FOR ANXIETY.
--- NOTE | 2021-02-20 19:53 | NUR ---
RECEIVED IN HALLWAY. RESTING IN A RECLINER WITH EYES OPEN. RESTLESS. ATTEMPTS TO STAND WITHOUT ASSIST.ACE ALARM SOUNDING. CALM AND COOPERATIVE WITH CARE AND ASSESSMENT. NO SIGNS OF AGGRESSION. REDIRECT AND REORIENT NEEDED. RESTING IN BED WITH EYES CLOSED AT THIS TIME. CONTINUE PLAN OF CARE.
[2021-02-20 21:11] VITALS: BP 176/99
--- NOTE | 2021-02-20 21:45 | NUR ---
RESTING QUIETLY IN BED WITH EYES CLOSED AT THIS TIME. NO SIGNS OF ANXIETY.
[2021-02-21 10:34] VITALS: BP 147/90
--- NOTE | 2021-02-21 16:26 | NUR ---
ALERT, RESTLESS, VERY CONFUSED. PACES FREQUENTLY, REQUIRING STAFF ASSISTANCE DUE TO UNSTEADY GAIT. TAKES MEDS CRUSHED DUE TO IMPAIRED COGNITION. MEDS ADMIN PER ORDERS WITH COMPLETE COMPLIANCE NOTED. NO ADVERSE REACTION TO MEDICATIONS. CONTINUE PLAN OF CARE AND CONSTANT OBSERVATION FOR UNASSISTED AMBULATION.
--- NOTE | 2021-02-21 20:26 | NUR ---
RECEIVED IN HALLWAY OUTSIDE OF NURSES STATION. RESTLESS. ATTEMPTS TO STAND WITHOUT ASSIST. ACE ALARM SOUNDING. VERY CONFUSED. NO SIGNS OF AGGRESSION. REDIRECT AND REORIENT NEEDED. IN BED AT THIS TIME. CONTINUES TO BE RESTLESS. CONTINUE PLAN OF CARE.
[2021-02-21 20:49] VITALS: BP 157/62
--- NOTE | 2021-02-22 07:24 | NUR ---
REC'D PT IN HALLWAY SITTING IN RECLINING CHAIR BY THE NURSES STATION. AWAKE AND ALERT TO PERSON ONLY. ASSESSMENT COMPLETED. PT IS VERY RESTLESS AT THIS TIME. PT ATTEMPTS TO GET UP UNASSISTED. PT BECOMES AGITATED UPON REDIRECTION. PRESCRIBED MEDS PROVIDED ORDERED. MED COMPLIANT. REDIRECT AND REORIENT NEEDED. FALL PRECAUTIONS IN PLACE FOR SAFETY. WILL CPOC.
[2021-02-22 08:00] VITALS: BP 156/83
--- NOTE | 2021-02-22 14:05 | NUR ---
Nutrition Re-Assessment Diet: Regular + Ensure TID PO intake: ~64% average x last 9 meals Last BM: last recorded BM 02/15/21 x 7 days now Wt: 134.4# (02/20/21); Admit Wt: 130# (02/12/21) Meds noted: miralax No new chem labs Estimated nutrition needs remain unchanged from initial nutrition assessment at this time. PO intake appears to be improving. Patient is progressing towards meeting nutrition goals at this time. Recommendations/Interventions: -Recommend continue current diet and oral nutrition supplement. Will continue to honor food preferences. -Continue bowel regimen to promote BM regularity and help preserve appetite. -RD will follow-up within 7 days.
--- NOTE | 2021-02-22 15:41 | PN ---
PATIENT:KATHY DILLON MEDICAL RECORD: [id number] LOCATION:[facility] ADMISSION DATE: 02/12/21 PROGRESS NOTE DATE OF SERVICE: 02/21/2021 SUBJECTIVE: The patient's case was discussed with staff. He has no new complaint. OBJECTIVE: The patient is not eating adequately and is not as steady as he has previously been. He has limited insight about this. He is obviously quite confused and is not fully oriented. ASSESSMENT: Dementia. PLAN: The patient will have his medications held, especially those that might be causing some confusion or sedation. His behaviors will be monitored. TRANSINT:[id number] Voice Confirmation ID: [id number] DOCUMENT ID: [id number] CHAPARRO COLBERT MD at 1541 CC: [id number] DICTATION DATE: 02/21/21 1634 IN HOUSE CRA: 02/22/21 0022 ADM IN [facility] [address] [place] [address]
--- NOTE | 2021-02-22 20:13 | NUR ---
RECEIVED IN DAYROOM. WALKING ABOUT. CONFUSED. CALM AND COOPERATIVE WITH CARE AND ASSESSMENT. NO SIGNS OF AGGRESSION. REDIRECT AND REORIENT NEEDED. CONITNUES TO WALK ABOUT DAYROOM. CONTINUE PLAN OF CARE.
[2021-02-22 20:29] VITALS: BP 131/59
[2021-02-23 10:34] VITALS: BP 150/76
--- NOTE | 2021-02-23 13:59 | NUR ---
Rec'd patient this am ambulatory in the hallway. He is A/O times 1 to person and is very confused. He was not med compliant even with multi attempts to take medications. He refused his am meds. He is ambulatory most of the day and is not directable or redirectiable. He often will walk in your direction without a purposed. He has a new med Of Geodon 20mg at . He has shown no aggressive behaviors with the other patients but will become easily aggitated with staff when he feels pressured to follow a direction and will easily lift his hand/arm to the staff. Plans to discharge soon back to senior living care. He did not participate in group activity or activity.
--- NOTE | 2021-02-23 14:53 | PN ---
PATIENT:KATHY DILLON MEDICAL RECORD: [id number] LOCATION:[facility] ADMISSION DATE: 02/12/21 PROGRESS NOTE DATE OF SERVICE: 02/22/2021 SUBJECTIVE: The patient's case was discussed with staff. He has no new complaint. OBJECTIVE: The patient is much calmer than he was on admission and he is much more awake than he was yesterday. He is still very much exit seeking and difficult to redirect. ASSESSMENT: Dementia. PLAN: The patient will be restarted on a lower dose of Geodon to assist with his behavior outbursts and disorganized thought processes. He will be monitored for clinical changes associated with the use of the medication. His long-term prognosis is guarded. TRANSINT:[id number] Voice Confirmation ID: [id number] DOCUMENT ID: [id number] CHAPARRO COLBERT MD at 1453 CC: [id number] DICTATION DATE: 02/22/21 1730 DIRECTOR OF ASSESSMENT: 02/23/21 0211 ADM IN [place] [id number] [place] [address]
[2021-02-23 20:00] VITALS: BP 122/86
--- NOTE | 2021-02-23 22:02 | NUR ---
B)RECEIVED PATIENT PACING HALLWAYS AND WANDERING IN OTHER PATIENT'S ROOMS. ORIENTED TO SELF ONLY. WHEN ASKED HOW WAS HIS DAY PATIENT RELATED "NOT SO GOOD" THEN WANDERED OFF TOPIC AND RELATED "GREEN SOMETHING HADN'T FILLED OUT." AFFECT IS IRRITABLE AND MUMBLES TO SELF WHEN VERBAL INSTRUCTIONS ARE GIVEN TO PATIENT AND WILL JUST STARE AT YOU. WITHDRAWN AROUND PEERS. I)ADMINISTER MEDS AND MONITOR COMPLIANCE. REORIENT NEEDED. R)MED COMPLIANT. POOR REORIENTATION DUE TO IMPAIRED ABILITY TO COMPREHEND AND RETAIN INFORMATION. UNABLE TO SEPARATE REALITY FROM FANTASY. P)CONTINUE POC AND PROVIDE SAFE ENVIRONMENT.
[2021-02-24 07:52] VITALS: BP 112/63
--- NOTE | 2021-02-24 11:04 | NUR ---
PT PACING IN DAYAREA. PT IS CALM AND COOEPERATIVE WITH STAFF. PT ALLOWED STAFF TO SHAVE AND PT BRUSHED HIS TEETH. CONFUSION NOTED. REDIRECT AND REORIENT NEEDED. REDIRECTION CAN BE DIFFICULT DUE TO LOW CONGITIVE ABILITIES. PT IS COMPLIANT WITH CRUSHED MEDS. PT CONTS TO BE RESTLESS. ANXIETY NOTED. PT STATED THIS SHIFT HE DID NOT KNOW WHAT WAS WRONG. HE WAS STUPID. CONT TO REDIRECT TO SIT DOWN WITH STAFF TO RELAX LEGS. WILL CONT PLAN OF CARE.
--- NOTE | 2021-02-24 16:11 | PN ---
PATIENT:KATHY DILLON MEDICAL RECORD: [id number] LOCATION:[facility] ADMISSION DATE: 02/12/21 PROGRESS NOTE DATE OF SERVICE: 02/23/2021 SUBJECTIVE: The patient is significantly better, much less confused, but still wandering and having some difficulty even following basic verbal commands. ASSESSMENT: Dementia. PLAN: Current medicines have been reviewed and will be maintained. TRANSINT:[id number] Voice Confirmation ID: [id number] DOCUMENT ID: [id number] CHAPARRO COLBERT MD at 1611 CC: [id number] DICTATION DATE: 02/23/21 1612 PET CARE ATTENDANT: 02/23/21 2448 ADM IN [place] [address] [place] [id number]
--- NOTE | 2021-02-24 19:42 | NUR ---
B) Patient is alert and oriented to self, anxious and wandering hallways, going into other patients rooms, unable to redirect I) Administered scheduled medications as ordered, PRN Ativan 0.5 mg IM and Haldol 2 mg IM given at 19:20 for anxiety R) Medication compliant, restless, P) Continue plan of care.
[2021-02-24 20:00] VITALS: BP 128/70
[2021-02-25 07:48] VITALS: BP 108/78
--- NOTE | 2021-02-25 11:19 | NUR ---
PT SITTING IN CHAIR AT THIS TIME. PT IS CALM AND ALERT TO SELF ONLY. COOPERATIVE WITH CONSTANT REDIRECTION. PT IS COMPLIANT WITH CRUSHED MEDS, VITALS AND ASSESSMENTS. NO PACING NOTED AT THIS TIME. PT CAN BE DIFFICULT TO REDIRECT. PT CAN NOT MAKE NEEDS KNOWN. REQUIRES ASSISTANCE WITH ALL ADLS. MONITOR FALL RISK PRECAUTIONS. CHAIR ALARM IN PLACE AND ACTIVE. WILL CONT PLAN OF CARE.
--- NOTE | 2021-02-25 12:58 | NUR ---
NUTRITION FOLLOW UP: COMMENTS: Paitent present with decreasing PO intake. Last BM recorded on 02/15. DIET: Regular Diet w/ finger foods SUPPLEMENT: Ensure with Meals PO INTAKE: 31% avg for last 9 meals; 58% avg for last 6 snacks WEIGHT: 02/20 134 lbs BM: x 1 on 02/15 SIG MEDS: Megace, Vit B12, Protonix SIG LABS: No new labs since 02/12 RECOMMENDATIONS: Continue regular diet as tolerated Continue Ensure with meals Continue Megace appetite stimulant Encourage PO Intake and assistance with meals as needed Recommend daily bowel regimen due to no BM in [address] to follow up within 7 days
--- NOTE | 2021-02-25 14:01 | PN ---
PATIENT:KATHY DILLON MEDICAL RECORD: [id number] LOCATION:[facility] ADMISSION DATE: 02/12/21 PROGRESS NOTE DATE OF SERVICE: 02/24/2021 SUBJECTIVE: The patient is oriented to person only. He has not been aggressive and he continuously walks about the unit, confused and exit seeking. He is reasonably easy to redirect, but it also must be considered that the staff to patient ratio here is much higher than he will encounter in the senior living. He is ambulatory. I am not willing to significantly medicate him for a problem that is a normal part of a dementing illness. 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 TRANSINT:[id number] Voice Confirmation ID: [id number] DOCUMENT ID: [id number] CHAPARRO COLBERT MD at 1401 CC: [id number] DICTATION DATE: 02/24/21 1613 WATER GAS OPERATOR: 02/24/21 2325 ADM IN [place] [id number] [place] [address]
--- NOTE | 2021-02-25 16:20 | NUR ---
PT VERY ANXIOUS, RESTLESS, PACING AND TOUCHING MULTIPLE SURFACES. UNABLE TO REDIRECT. STAFF ATTEMPED MULTIPLE REDIRECT TECHNIQUES. WAS NOT EFFECTIVE. PT UNSTEADY DUE TO PACING. ATIVAN 0.5 MG AND HALDOL 2 MG IM. PT SITTING WITH STAFF AT THIS TIME TO REDUCE FALL RISK.
--- NOTE | 2021-02-25 17:20 | NUR ---
PT ATE 100% OF MEAL WITH ASSISTANCE. PRN EFFECTIVE AT THIS TIME. PT RESTING WITH BED ALARM IN PLACE AND ACTIVE.
[2021-02-25 20:00] VITALS: BP 163/79
--- NOTE | 2021-02-25 20:49 | NUR ---
PT RECEIVED IN BED. RESTLESS AT TIMES. UNABLE TO FOLLOW SIMPLE COMMANDS. ALERT AND ORIENTED TO SELF ONLY. POOR INSIGHT INTO HIS SITUATION. COMPLIANT WITH ALL MEDICATIONS. NO AGGRESSION NOTED. MONITOR FOR SAFETY.
--- NOTE | 2021-02-26 04:36 | NUR ---
PT RESTLESS IN GERICHAIR. AGGRESSIVE WITH REDIRECTION. UNABLE TO REDIRECT. ADMINISTERED PRN ATIVAN 0.5MG IM PER ORDERS. MONITOR FOR SAFETY.
--- NOTE | 2021-02-26 05:10 | NUR ---
PT RESTING CALMLY IN GERICHAIR WITH EYES CLOSED. NO DISTRESS NOTED. MONITOR FOR SAFETY.
[2021-02-26 09:42] VITALS: BP 98/55
--- NOTE | 2021-02-26 10:43 | PN ---
PATIENT:KATHY DILLON MEDICAL RECORD: [id number] LOCATION:[facility] ADMISSION DATE: 02/12/21 PROGRESS NOTE DATE OF SERVICE: 02/25/2021 SUBJECTIVE: The patient's case was discussed with staff. He has no new complaint. OBJECTIVE: The patient is oriented to person only. He is not eating well. He had some agitation last night and did require p.r.n. medication. I regret that, but I also view it as an isolated incident given that it has been a long time since he has had any agitated behavior. TRANSINT:[id number] Voice Confirmation ID: [id number] DOCUMENT ID: [id number] CHAPARRO COLBERT MD at 1043 CC: [id number] DICTATION DATE: 02/25/21 1527 TAX MANAGER: 02/25/21 2242 ADM IN [place] [address] [place] [address]
--- NOTE | 2021-02-26 16:29 | NUR ---
ALERT, RESTLESS, QUITE CONFUSED, VERY STM, MEDS ADMIN PER ORDERS WITH COMPLETE MED COMPLIANCE NOTED. NO ADVERSE REACTION TO MEDS. REQUIRES FREQUENT REMINDERS TO NOT AMBULATE UNASSISTED DUE TO UNSTEADINESS OF GAIT. AMBULATES WITH STAFF ASSIST. NO AGGRESSION NOTED. CONTINUE PLAN OF CARE.
--- NOTE | 2021-02-26 22:49 | NUR ---
PT RECEIVED IN [facility] IN HALLWAY OUTSIDE OF NURSES STATION. REQUIRES 1:1 CONSTANT SUPERVISION HE IS VERY CONFUSED, RESTLESS AND DIFFICULT TO REDIRECT. COMPLIANT WITH ALL MEDICATIONS. NO AGGRESSION NOTED. UNSTEADY GAIT AMBULATE WITH ASSIST. MONITOR FOR SAFETY.
--- NOTE | 2021-02-27 02:09 | NUR ---
PT RESTLESS IN BED. ATTEMPTS TO GET OUT OF BED WITHOUT ASSIST. RELATES HE IS ANXIOUS. STATES "I CANNOT MAKE IT STOP DOING WHAT I CANT REMEMBER." ADMINISTERED PRN ATIVAN 0.5 MG PO PER ORDERS. WILL MONITOR FOR EFFECTIVENESS.
[2021-02-27 08:00] VITALS: BP 131/68
--- NOTE | 2021-02-27 10:47 | PN ---
PATIENT:KATHY DILLON MEDICAL RECORD: [id number] LOCATION:[facility] ADMISSION DATE: 02/12/21 PROGRESS NOTE DATE OF SERVICE: 02/26/2021 SUBJECTIVE: The patient's case was discussed with staff. OBJECTIVE: The patient was agitated last night and required p.r.n. medication because of this agitation. Today, he is a little sedated, but I suspect that we will wear off as time progresses. ASSESSMENT: Dementia. PLAN: I am going to increase the patient's scheduled dose of Geodon to 20 mg twice daily to address these behavior disturbances. TRANSINT:[id number] Voice Confirmation ID: [id number] DOCUMENT ID: [id number] CHAPARRO COLBERT MD at 1047 CC: [id number] DICTATION DATE: 02/26/21 1105 SCHOOL CLEANER: 02/26/21 1416 ADM IN [place] [id number] [place] [id number]
--- NOTE | 2021-02-27 17:01 | NUR ---
PATIENT HAS PACED UNIT ALL DAY, RESTLESS. NO AGGRESSION NOTED. BATH GIVEN, PATIENT QUITE CONFUSED BUT COOPERATIVE. MEDS ADMIN PER ORDERS WITH NO ADVERSE REACTION NOTED. CONTINUE PLAN OF CARE, MONITORING FOR AGGRESSION.
--- NOTE | 2021-02-27 19:55 | NUR ---
RECEIVED IN HALLWAY. PACING IN UNIT. VERY CONFUSED. CALM AND COOPERATIVE WITH CARE AND ASSESSMENT. NO SIGNS OF AGGRESSION. REDIRECT AND REORIENT NEEDED. IN BATHROOM AT THIS TIME. CONTINUE PLAN OF CARE.
--- NOTE | 2021-02-27 20:19 | NUR ---
PT RESTLESS AND PACING. WANDERING INTO MANY OTHER PTS ROOMS. TEARING HIS BLUE JEANS INTO SHREDS. UNABLE TO REDIRECT. ADMINISTERED PRN ATIVAN 0.5MG IM. MONITOR FOR SAFETY.
--- NOTE | 2021-02-27 20:59 | NUR ---
PT RESTING CALMLY IN BED. NO DISTRESS NOTED. BED ALARM ON AND WORKING. MONITOR FOR SAFETY.
[2021-02-27 21:15] VITALS: BP 152/59
[2021-02-28 08:27] VITALS: BP 116/69
--- NOTE | 2021-02-28 13:29 | PN ---
PATIENT:KATHY DILLON MEDICAL RECORD: [id number] LOCATION:[facility] ADMISSION DATE: 02/12/21 PROGRESS NOTE DATE OF SERVICE: 02/27/2021 SUBJECTIVE: The patient's case was discussed with staff. He has no new complaint. OBJECTIVE: The patient required p.r.n. medication yesterday because of some agitation. He is restless and at times difficult to redirect. ASSESSMENT: Dementia. PLAN: The patient's Geodon was increased yesterday to address these behaviors and I do not think it has had an opportunity to be effective. I have reviewed current medicines and will maintain them. TRANSINT:[id number] Voice Confirmation ID: [id number] DOCUMENT ID: [id number] CHAPARRO COLBERT MD at 1329 CC: [id number] DICTATION DATE: 02/27/21 1106 FUNERAL DIRECTOR/EMBALMER/OWNER: 02/27/21 1417 ADM IN [place] [id number] [place] [address]
--- NOTE | 2021-02-28 17:30 | NUR ---
RECEIVED IN PATIENT ROOM. CALM AND COOPERATIVE WITH CARE AND ASSESSMENT. VERY RESTLESS. WANDERING UNIT. VERY CONFUSED. NO AGGRESSION NOTED. REDIRECT AND REORIENT NEEDED. EATING DINNER AT THIS TIME. CONTINUE PLAN OF CARE.
[2021-02-28 20:00] VITALS: BP 137/55
--- NOTE | 2021-02-28 20:30 | NUR ---
RECEIVED IN [facility]. PACING. NOTED ANXIETY. VERY CONFUSED. COOPERATIVE WITH CARE AND ASSESSMENT. PRN ATIVAN 0.5 MG PO GIVEN FOR ANXIETY. REDIRECT AND REORIENT NEEDED. CONTINUES TO PACE UNIT. CONTINUE PLAN OF CARE.
--- NOTE | 2021-03-01 01:10 | NUR ---
RESTING IN BED WITH EYES CLOSED. NO SIGNS OF ANXIETY.
--- NOTE | 2021-03-01 03:33 | NUR ---
RESTLESS. UP AND DOWN FROM BED. ACE ALARM SOUNDING.
--- NOTE | 2021-03-01 15:30 | PN ---
PATIENT:KATHY DILLON MEDICAL RECORD: [id number] LOCATION:[facility] ADMISSION DATE: 02/12/21 PROGRESS NOTE DATE OF SERVICE: 02/28/2021 SUBJECTIVE: The patient's case was discussed with staff. He has no new complaint. OBJECTIVE: The patient is disorganized and difficult to redirect, but he has not been aggressive. ASSESSMENT: Dementia. PLAN: Current medicines have been reviewed and will be maintained. His long-term prognosis is guarded. TRANSINT:[id number] Voice Confirmation ID: [id number] DOCUMENT ID: [id number] CHAPARRO COLBERT MD at 1530 CC: [id number] DICTATION DATE: 02/28/21 1609 DIRECTOR BUSINESS DEVELOPMENT: 03/01/21 0037 ADM IN [facility] [address] [place] [address]
--- NOTE | 2021-03-01 17:20 | NUR ---
RECEIVED IN HALLWAY OUTSIDE OF NURSES STATION. VERY CONFUSED. WANDERING AROUND UNIT AND OTHER PATIENT'S ROOMS. NO AGGRESSIVE BEHAVIOR. REDIRECT AND REORIENT NEEDED. EATING DINNER AT THIS TIME. CONTINUE PLAN OF CARE.
[2021-03-01 20:00] VITALS: BP 128/66
--- NOTE | 2021-03-01 20:41 | NUR ---
RECEIVED IN HALLWAY. WALKING ABOUT UNIT. RESTLESS. CALM AND COOPERATIVE WITH CARE AND ASSESSMENT. NO SIGNS OF AGGRESSION. REDIRECT AND REORIENT NEEDED. IN BEDROOM MESSING WITH HIS BED AT THIS TIME. CONTINUE PLAN OF CARE.
[2021-03-02 08:32] VITALS: BP 176/82
--- NOTE | 2021-03-02 15:13 | NUR ---
Nutrition Re-Assessment Diet: Regular, finger foods + Ensure TID PO intake: ~43% average x last 9 meals (varied 5-100%) Per MD notes patient "on and off feeds himself" Last BM: 02/28/21 Wt: 134# (02/27/21); Admit Wt: 130# (02/12/21) Meds noted: miralax, megace No new chem labs Estimated nutrition needs and nutrition diagnosis remain unchanged from initial nutrition assessment at this time. Patient is moderally progressing towards meeting nutrition goals at this time. Recommendations/Interventions: -Recommend continue current diet with finger foods and Ensure with meals. -Will continue to honor food preferences. -Recommend continue appetite stimulant as long as medically feasible. -RD will follow-up within 7 days.
--- NOTE | 2021-03-02 16:06 | PN ---
PATIENT:KATHY DILLON MEDICAL RECORD: [id number] LOCATION:[facility] ADMISSION DATE: 02/12/21 PROGRESS NOTE DATE OF SERVICE: 03/01/2021 SUBJECTIVE: The patient's case was discussed with staff. He has no new complaint. OBJECTIVE: The patient continues to wander. He is intermittently agitated. He did require p.r.n. medication last night because he could not be redirected. ASSESSMENT: Dementia. PLAN: This patient's dementia is very late and he is just displaying behaviors that are consistent with the condition. The best thing would be for him to be in an environment where being up at night was not going to be problematic and he could be managed by staff and kept in a safe environment. The [facility] is the least restrictive environment; however, it may be necessary that he be transferred to a behavioral unit or dementia unit. TRANSINT:[id number] Voice Confirmation ID: [id number] DOCUMENT ID: [id number] CHAPARRO COLBERT MD at 1606 CC: [id number] DICTATION DATE: 03/01/21 170 ENVELOPE SEALING MACHINE OPERATOR: 03/02/21 0024 ADM IN [facility] [address] [place] [address]
--- NOTE | 2021-03-02 16:32 | NUR ---
RECEIVED UP IN RECLINER IN HALLWAY.CONSTANTLY GETTING UP AND WANDERING IN HALLWAY AND INTO OTHER PATIENTS ROOMS.DIFFICULT TO REDIRECT.VERY CONFUSED AND DISORIENTED.NO AGGRESSION OBSERVED.WILL CONTINUE WITH CURRENT PLAN OF CARE,MONITOR FOR CHANGES AND SAFETY.
--- NOTE | 2021-03-02 17:40 | NUR ---
RECEIVED IN HALLWAY OUTSIDE OF NURSES STATION. WANDERING UNIT AND WANDERING IN TO OTHER PATIENTS ROOMS. VERY CONFUSED. NO AGGRESSIVE BEHAVIOR. REDIRECT AND REORIENT NEEDED. EATING DINNER AND WALKING AT THIS TIME. CONTINE PLAN OF CARE.
[2021-03-02 20:00] VITALS: BP 167/104
--- NOTE | 2021-03-02 21:27 | NUR ---
PT IS ALERT AND ORIENTED TO SELF ONLY. POOR INSIGHT INTO SITUATION. RESTLESS, PACING AND WANDERING INTO OTHER PTS ROOMS. REQUIRES CONSTANT REDIRECTION. CONSTANTLY REMOVING GOWN DESPITE MANY ATTEMPTS TO REDIRECT. COMPLIANT WITH ALL MEDICATIONS. DIFFICULT TO REDIRECT. MONITOR FOR SAFETY.
[2021-03-03 09:42] VITALS: BP 160/63
--- NOTE | 2021-03-03 13:09 | PN ---
PATIENT:KTAHY DILLON MEDICAL RECORD: [id number] LOCATION:[facility] ADMISSION DATE: 02/12/21 PROGRESS NOTE DATE OF SERVICE: 03/02/2021 SUBJECTIVE: The patient's case was discussed with staff. He has no new complaint. OBJECTIVE: The patient denies that he would seek to harm himself or others. He is tolerating his medications well. He is eating significantly better. ASSESSMENT: Dementia. PLAN: Current medicines have been reviewed and will be maintained. Long-term prognosis is guarded. TRANSINT:[id number] Voice Confirmation ID: [id number] DOCUMENT ID: [id number] CHAPARRO COLBERT MD at 1309 CC: [id number] DICTATION DATE: 03/02/21 174 PUMPER BREWERY: 03/02/21 2353 ADM IN [facility] [address] [place] [address]
--- NOTE | 2021-03-03 15:58 | NUR ---
Patient rec'd this am sitting up in a reclining w/c. Night staff states he has been up most of the night and will not stay seated requiring the need of a one to one sitter last night. He cannot follow directions or be directed. He can easily become aggitated but for most of the time he is calm and pleasant. He did sit in therpy/group but did not participate.He has shown no aggression to staff. He paces, wanders without a purpose and resistant to care and redirection. He takes his meds crushed and placed in food. He is alert to his name.
[2021-03-03 20:00] VITALS: BP 166/66
--- NOTE | 2021-03-03 21:02 | NUR ---
PT IS ALERT AND ORIENTED TO SELF ONLY. RECEIVED IN DAYROOM PACING. COMPLIANT WITH ALL MEDICATIONS. RESISTANT TO REDIRECTION. UNABLE TO FOLLOW SIMPLE COMMANDS. MONITOR FOR SAFETY.
[2021-03-04 09:34] VITALS: BP 109/77
--- NOTE | 2021-03-04 18:12 | NUR ---
pt in dayarea walking at this time. pt paces. confused. alert to self only. poor insight to situation. resistant to redirection. attempt multiple times to redirect. compliant with meds crushed, vitals and assessments. no aggressive behaviors noted. staff monitors closely when pt is pacing. pericare q 2 hr and prn. pt is not able to make needs known. will cont plan of care.
[2021-03-04 20:00] VITALS: BP 118/73
--- NOTE | 2021-03-04 23:05 | NUR ---
B)RECEIVED PATIENT SITTING IN THE DAYROOM. ORIENTED TO SELF ONLY. RESTLESS AND WILL CONTINUOUSLY STAND UP AND THEN SIT DOWN. DOES NOT FOLLOW TOPIC OF CONVERSATION AND GIVES INAPPROPRIATE RESPONSES TO QUESTIONS. DIFFICULTY FOLLOWING VERBAL INSTRUCTIONS. WANDERS INTO OTHER PATIENT'S ROOMS AND URINATED AND HAD BOWEL MOVEMENT IN THE TRASH CAN. I)ADMINISTER MEDS AND MONITOR COMPLIANCE. REORIENT NEEDED. R)MED COMPLIANT. POOR REORIENTATION DUE TO IMPAIRED ABILITY TO COMPREHEND, PROCESS AND RETAIN INFORMATION. UNABLE TO SEPARATE REALITY FROM FANTASY. P)CONTINUE POC AND PROVIDE SAFE ENVIRONMENT.
[2021-03-05 08:00] VITALS: BP 103/55
--- NOTE | 2021-03-05 14:47 | NUR ---
PT PACING IN DAYAREA. PT IS CALM AND COOPERATIVE WITH STAFF. PT IS COMPLIANT WITH CRUSHED MEDS, VITALS AND ASSESSMENTS. CONFUSED. ALERT TO SELF ONLY. DIFFICULT TO REDIRECT AND REORIENT. PT CAN RESISTIVE TO REDIRECTION DUE TO LOW COGNITIVE ABILITIES. NO AGRESSION NOTED. BED AND CHAIR ALARM IN PLACE AND ACTIVE. WILL CONT PLAN OF CARE.
--- NOTE | 2021-03-05 16:36 | NUR ---
ALERT, PACES AT TIMES, PLEASANT, NO AGGRESSION, RE-DIRECTS EASILY. MEDS ADMIN PER ORDERS WITH COMPLETE MED COMPLIANCE NOTED. CONTINUE PLAN OF CARE, MONITORING FOR AGGRESSION.
[2021-03-05 20:00] VITALS: BP 93/62
--- NOTE | 2021-03-05 23:56 | NUR ---
B)RECEIVED PATIENT SITTING IN THE DAYROOM. ORIENTED TO SELF ONLY AND WILL TELL YOU HIS FULL NAME. WILL HEAR A CONVERSATION AND WILL INTERJECT HIS THOUGHT HOWEVER IT IS NOT CONGRUENT WITH THE CONTENT BEING TALKED ABOUT. PLEASANT. DIFFICULTY FOLLOWING VERBAL INSTRUCTIONS DUE TO IMPAIRED ABILITY TO COMPREHEND AND PROCESS INFORMATION. I)ADMINISTER MEDS AND MONITOR COMPLIANCE. REORIENT NEEDED. R)MED COMPLIANT. POOR REORIENTATION. PATIENT WILL START TALKING ABOUT SOMETHING TOTALLY OFF TOPIC IE "THESE ARE GOOD ONES. I WANT HER TO LIVE. YOU COME AROUND THEY THINK THEY HAVE ANOTHER WATER." P)CONTINUE POC AND PROVIDE SAFE ENVIRONMENT.
[2021-03-06 09:43] VITALS: BP 122/64
--- NOTE | 2021-03-06 14:29 | NUR ---
REC'D PT PACING HALLWAY BY NURSES STATION. AWAKE AND ALERT TO PERSON ONLY. CALM AND COOPERATIVE WITH ASSESSMENT. PT UNABLE TO UNDERSTAND INSTRUCTIONS OR CONSERVATIONS AT THIS TIME. REDIRECT AND REORIENT NEEDED. NO AGGRESSION NOTED. FALL PRECAUTIONS IN PLACE FOR SAFETY. WILL CPOC.
[2021-03-06 21:06] VITALS: BP 160/80
--- NOTE | 2021-03-06 21:10 | NUR ---
RECEIVED IN DAYROOM. SITTING IN A CHAIR WITH PEERS AT HIS SIDE. RESTLESS AT TIMES. CALM AND COOPERATIVE WITH CARE AND ASSESSMENT. NO SIGNS OF AGGRESSION. REDIRECT AND REORIENT NEEDED. CONTINUES TO REST CALMLY IN CHAIR. CONTINUE PLAN OF CARE.
[2021-03-07 08:00] VITALS: BP 149/77
--- NOTE | 2021-03-07 12:00 | NUR ---
Received patient pacing the hallway by the nurses station. Awake and alert to person only. Assessment completed at this time. Prescribed medications provided as ordered. Med compliant at this time. No aggression noted upon redirection. Redirect and reorient as needed. Fall precautions in place for safety. Will cpoc.
--- NOTE | 2021-03-07 13:46 | PN ---
PATIENT:KATHY DILLON MEDICAL RECORD: [id number] LOCATION:[facility] ADMISSION DATE: 02/12/21 PROGRESS NOTE DATE OF SERVICE: 03/03/2021 SUBJECTIVE: The patient's case was discussed with staff. He has no new complaint. OBJECTIVE: The patient is only oriented to person. He is sleeping and eating well. He denies that he would seek to harm himself. ASSESSMENT: Dementia. PLAN: The patient is probably at his maximum hospital benefit and may be transitioned out of the hospital soon. TRANSINT:[id number] Voice Confirmation ID: [id number] DOCUMENT ID: [id number] CHAPARRO COLBERT MD at 1346 CC: [id number] DICTATION DATE: 03/03/21 155 INSPECTOR ELEVATORS: 03/03/212124 ADM IN [facility] [address] [place] [address]
[2021-03-07] MEDS ORDERED: BUSPAR10 MG PO (17:17)
[2021-03-07] MEDS ORDERED: TRAZODONE HCL50 MG PO (17:17)
[2021-03-07] MEDS ORDERED: LOPRESSOR25 MG PO (17:17)
[2021-03-07] MEDS ORDERED: OLOPATADINE 0.1% EACH EYE (17:18)
[2021-03-07] MEDS ORDERED: MIRALAX17 GM PO (17:18)
[2021-03-07] MEDS ORDERED: Megace ES [CHEMO] PO (17:18)
[2021-03-07] MEDS ORDERED: GEODON20 MG PO (17:18)
[2021-03-07] MEDS ORDERED: VITAMIN B-12250 MC3 PO (17:19)
--- NOTE | 2021-03-07 19:38 | NUR ---
RECEIVED IN HALLWAY. PACING UNIT. INTRUSIVE. DIFFICULT TO REDIRECT. CALM AND COOPERATIVE WITH CARE AND ASSESSMENT. NO SIGNS OF AGGRESSION. REDIERCT AND REORIENT NEEDED. PACING IN HALLWAY AT THIS TIME. CONTINUE PLAN OF CARE.
--- NOTE | 2021-03-07 21:14 | NUR ---
PT RESTLESS. WANDERING INTO PT ROOMS. UNABLE TO REDIRECT. AGGITATED WITH REDIRECTION. VERBALLY THREATENED STAFF MEMBERS.
[2021-03-07 21:36] VITALS: BP 160/86
[2021-03-08 01:04] LABS: SARS-CoV-2 ANTIGEN NEGATIVE- SARS-COV-2 (NEGATIVE)
--- NOTE | 2021-03-08 06:42 | NUR ---
PT RESTLESS AND RESISTANT TO REDIRECTION. DIFFICULT TO FOLLOW SIMPLE COMANDS. REQUIRES CONSTANT REDIRECTION AND SUPERVISION.
[2021-03-08 08:43] VITALS: BP 149/70
--- NOTE | 2021-03-08 13:00 | NUR ---
SW ATTEMPTED TO CONTACT SON ABOUT DISCHARGE. SW WAS UNABLE TO GET A HOLD OF HIM. SW LEFT MESSAGE TO ALERT OF DISCHARGE AND STATED IF HE HAS ANY QUESTIONS PLEASE FEEL FREE TO CALL THE UNIT.
--- NOTE | 2021-03-08 16:04 | PN ---
PATIENT:KATHY DILLON MEDICAL RECORD: [id number] LOCATION:[facility] ADMISSION DATE: 02/12/21 PROGRESS NOTE DATE OF SERVICE: 03/07/2021 SUBJECTIVE: The patient's case was discussed with staff. He has no new complaint. OBJECTIVE: The patient is in good behavioral control with limited insight about his situation. He has not been aggressive. ASSESSMENT: Dementia. PLAN: The patient will be transitioned out of the hospital tomorrow. His long-term prognosis is guarded. TRANSINT:[id number] Voice Confirmation ID: [id number] DOCUMENT ID: [id number] CHAPARRO COLBERT MD at 1604 CC: [id number] DICTATION DATE: 03/07/211712 MECHANICAL DESIGN TECHNICIAN: 03/07/21 223 [address]M [address] [address] [place] [address]
--- NOTE | 2021-03-08 16:56 | NUR ---
RECEIVED THIS AM WANDERING ABOUT UNIT.IS VERY CONFUSED AND DISORIENTED.VERY DIFFICULT TO REDIRECT.CONSTANTLY WALKING AND TOUCHING THINGS.WAS COMPLIANT WITH MEDS,CRUSHED AND GIVEN IN PUDDING.NO AGGRESSION OBSERVED.WAS DISCHARGED TO [facility] AT 1330 WITH THEIR STAFF VIA VAN.ALL PERSONAL ITEMS AND INSTRUCTIONS SENT WITH HIM AT.
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
== END 2021-03-08 13:30 | DRG 57 ==
LOC: D.ER 19:58 → D.PSYCH 22:57
PROVIDERS: Family Medicine; ADMIT Psychiatry & Neurology Psychiatry; ATTEND Psychiatry & Neurology Psychiatry
DX: G30.1 Alzheimer's disease with late onset (principal); F02.81 Dementia in other diseases classified elsewhere, unspecified severity, with behavioral disturbance; Z20.822 Contact with and (suspected) exposure to COVID-19; I10 Essential (primary) hypertension; E78.5 Hyperlipidemia, unspecified; K21.9 Gastro-esophageal reflux disease without esophagitis; D64.9 Anemia, unspecified; J30.9 Allergic rhinitis, unspecified; K59.00 Constipation, unspecified; R63.0 Anorexia; E55.9 Vitamin D deficiency, unspecified; Z68.21 Body mass index [BMI] 21.0-21.9, adult

== ENCOUNTER 2021-03-10 14:58 | Emergency (ER) | payer MEDICARE, BC ==
[~2021-03-10] VITALS: Ht 172.7 cm; Wt 68.2 kg
[~2021-03-10 14:58] MED LIST changes: +BUSPAR 15 MG TA15 MG PO; +BUSPAR10 MG PO; +CLARITIN 10 MG10 MG PO; +ERGOCALCIF50000 UNIT PO; +LOPRESSOR25 MG PO; +Megace ES [CHEMO] PO; +OLOPATADINE 0.1% EACH EYE; +PRAVACHOL20 MG PO; +SEROQUEL50 MG PO; +TRAZODONE HCL50 MG PO; +VITAMIN B-12250 MC3 PO
[2021-03-10 15:01] VITALS: BP 102/80; Ht 172.7 cm; Wt 68.2 kg
== END 2021-03-10 16:40 ==
LOC: D.ER 14:58
DX: F20.9 Schizophrenia, unspecified (principal)